=== PATIENT | male | born 1980 | race African-American/Black ===

== ENCOUNTER 2016-11-08 06:39 | Inpatient (IN) | payer BC ==
[~2016-11-08] VITALS: Ht 165.1 cm; Wt 108.9 kg
[2016-11-08] MEDS ORDERED: ONDANSETRON PF 4 MG/2 ML VIAL. IV ONE (07:00)
[2016-11-08] MEDS ORDERED: IV NORMAL SALINE 1000ML BAG 1,000 ML IV ONE (07:00)
--- NOTE | 2016-11-08 07:05 | PHYS DOC ---
Past Medical History Past Medical History: Anxiety, Hypertension, Other Additional Past Medical Histor: sleep apnea Past Surgical History: No Surgical History Alcohol Use: None Drug Use: None Adult General Chief Complaint Chief Complaint: DIZZY/LIGHT HEADED HPI HPI Patient is a 36 year old male who presents with vomiting & lightheadedness. The patient reports he woke this AM around 0530, felt lightheaded. He subsequently reports 13 episodes of vomiting. He denies fevers/chills, chest pain, shortness of breath, palpitations, hematemesis, abdominal pain, diarrhea, hematochezia/melena, dysuria/hematuria. Denies any recent exposures to ill contacts. History of HTN & VARINDER, denies use of EtOH. Doesn't have a PCP. Review of Systems Review of Systems Constitutional: Denies fever or chills Eyes: Denies change in visual acuity HENT: Denies nasal congestion or sore throat Respiratory: Denies cough or shortness of breath Cardiovascular: Denies chest pain or edema GI: Reports nausea & vomiting. Denies abdominal pain, bloody stools or diarrhea : Denies dysuria or hematuria Musculoskeletal: Denies back pain or joint pain Integument: Denies rash or skin lesions Neurologic: Denies headache, focal weakness or sensory changes Current Medications Current Medications Current Medications Medications (Trade) Dose Ordered Sig/Lorenzo Start Time Stop Time Status Last Admin Dose Admin Acetaminophen (Tylenol) 650 mg PRN Q4HRS PRN 11/08/16 11:15 11/09/16 11:14 Meclizine HCl (Antivert) 12.5 mg PRN Q6HRS PRN 11/08/16 11:15 Metoclopramide HCl (Reglan) 10 mg 1X ONCE 11/08/16 08:00 11/08/16 08:01 DC 11/08/16 08:03 10 MG Morphine Sulfate 2 mg PRN Q2HR PRN 11/08/16 11:15 11/09/16 11:14 Ondansetron HCl (Zofran) 4 mg PRN Q8HRS PRN 11/08/16 11:15 11/09/16 11:14 Potassium Chloride (KCl Oral Soln) 40 meq 1X ONCE 11/08/16 07:45 11/08/16 07:46 DC 11/08/16 07:54 40 MEQ Potassium Chloride (Klor-Con) 40 meq 1X ONCE 11/08/16 12:00 11/08/16 12:01 11/08/16 11:07 40 MEQ Sodium Chloride 1,000 ml @ 1,000 mls/hr 1X ONCE 11/08/16 07:00 11/08/16 07:59 DC 11/08/16 07:23 1,000 MLS/HR Allergies Allergies Allergies Coded Allergies Type Severity Reaction Last Updated Verified No Known Drug Allergies 07/08/15 No Physical Exam Physical Exam Constitutional: obese, no acute distress, non-toxic appearance. HENT: Normocephalic, atraumatic, bilateral external ears normal, TMs clear bilaterally no bulging or erythema, oropharynx moist, nose normal. Eyes: PERRLA, EOMI, conjunctiva normal, no discharge. Neck: supple, no stridor. Cardiovascular: RRR, no murmurs, no edema. Lungs & Thorax: LCTAB, no wheezing, no respiratory distress. Abdomen: soft, nontender, nondistended. Skin: Warm, dry, no erythema, no rash. Back: No tenderness. Extremities: No tenderness, no edema. Neurologic: Alert and oriented X 3, CN2-12 grossly intact, symmetric strength/ sensation to UE & LE, no focal deficits noted. Psychologic: Affect normal, judgement normal, mood normal. Current Patient Data Vital Signs Vital Signs Date Time Temp Pulse Resp B/P (MAP) Pulse Ox O2 Delivery O2 Flow Rate FiO2 11/08/16 09:00 80 18 96 Room Air 11/08/16 08:30 166/91 (116) 11/08/16 06:48 97.1 97.1 Lab Values Laboratory Tests Test 11/08/16 07:15 White Blood Count 7.5 x10^3/uL (4.0-11.0) Red Blood Count 5.16 x10^6/uL (4.30-5.70) Hemoglobin 14.5 g/dL (13.0-17.5) Hematocrit 45.3 % (39.0-53.0) Mean Corpuscular Volume 88 fL (79-100) Mean Corpuscular Hemoglobin 28 pg (25-35) Mean Corpuscular Hemoglobin Concent 32 g/dL (31-37) Red Cell Distribution Width 14.0 % (11.5-14.5) Platelet Count 226 x10^3/uL (140-400) Neutrophils (%) (Auto) 52 % (31-73) Lymphocytes (%) (Auto) 32 % (24-48) Monocytes (%) (Auto) 12 % (0-9) H Eosinophils (%) (Auto) 4 % (0-3) H Basophils (%) (Auto) 1 % (0-3) Neutrophils # (Auto) 3.9 x10^3uL (1.8-7.7) Lymphocytes # (Auto) 2.4 x10^3/uL (1.0-4.8) Monocytes # (Auto) 0.9 x10^3/uL (0.0-1.1) Eosinophils # (Auto) 0.3 x10^3/uL (0.0-0.7) Basophils # (Auto) 0.0 x10^3/uL (0.0-0.2) Platelet Estimate Adequate (ADEQUATE) Giant Platelets Present Sodium Level 142 mmol/L (136-145) Potassium Level 3.2 mmol/L (3.5-5.1) L Chloride Level 102 mmol/L (98-107) Carbon Dioxide Level 26 mmol/L (21-32) Anion Gap 14 (6-14) Blood Urea Nitrogen 11 mg/dL (8-26) Creatinine 1.1 mg/dL (0.7-1.3) Estimated GFR (Cockcroft-Gault) 91.1 BUN/Creatinine Ratio 10 (6-20) Glucose Level 140 mg/dL (70-99) H Calcium Level 9.0 mg/dL (8.5-10.1) Total Bilirubin 0.2 mg/dL (0.2-1.0) Aspartate Amino Transferase (AST) 30 U/L (15-37) Alanine Aminotransferase (ALT) 47 U/L (16-63) Alkaline Phosphatase 92 U/L (46-116) Troponin I Quantitative < 0.017 ng/mL (0.000-0.055) Total Protein 7.8 g/dL (6.4-8.2) Albumin 3.8 g/dL (3.4-5.0) Albumin/Globulin Ratio 1.0 (1.0-1.7) Lipase 88 U/L (73-393) Laboratory Tests 11/08/16 07:15 Laboratory Tests 11/08/16 07:15 EKG EKG interpreted by me: NSR rate 69, no ST elevation, T waves inverted in V5-V6, 1, 2, aVL without depression, normal intervals, no ectopy.[] Radiology/Procedures Radiology/Procedures PROCEDURE: CT HEAD WO CONTRAST Indication: Vertigo with nausea and vomiting. Axial imaging through the brain was performed without contrast. The ventricles and sulci are within normal limits. No sulcal effacement, midline shift or hemorrhage is detected. Cisterns are patent. The paranasal sinuses demonstrate mucous retention cysts or polyps within bilateral maxillary sinuses. Impression: No acute intracranial process is detected. PQRS Compliance Statement: One or more of the following individualized dose reduction techniques were utilized for this examination: 1. Automated exposure control 2. Adjustment of the mA and/or kV according to patient size 3. Use of iterative reconstruction technique DICTATED and SIGNED BY: RADHA RAMESH MD DATE: 11/08/16 0858[] Course & Med Decision Making Course & Med Decision Making Pertinent Labs and Imaging studies reviewed. (See chart for details) Patient presents with vomiting and lightheadedness. Gave IV fluids, Zofran. Labs show hypokalemia, he vomited immediately after receiving oral potassium. Subsequently complaining of vertigo more then near syncope, gave meclizine. Persistent vomiting and vertigo. Obtained CT of head which is negative for acute process. He continued to experience nausea, vomiting, and not able to stand up or ambulate. Recommended admission to the hospital for further valuation and treatment. The patient agrees with plan of care. Discussed with Dr. Lincoln who agrees to admit to inpatient status, neurology consult to Dr. Galeas. Patient admitted in stable condition. [] Dragon Disclaimer Dragon Disclaimer This electronic medical record was generated, in whole or in part, using a voice recognition dictation system. Departure Departure Impression: Primary Impression: Vertigo Additional Impressions: Hypokalemia Nausea & vomiting Disposition: ADMITTED INPATIENT Admitting Physician: Harman Lincoln Condition: STABLE Referrals: NO PCP (PCP) Problem Qualifiers ETHEL BERNARD MD November 08, 2016 07:05
[2016-11-08 07:36] LABS: BASO % 1 % (0-3); CREATININE 1.1 mg/dL (0.7-1.3); EOS % 4 % (0-3); GFR 91.1; HEMATOCRIT 45.3 % (39.0-53.0); HEMOGLOBIN 14.5 g/dL (13.0-17.5); LYMPH # 2.4 x10^3/uL (1.0-4.8); LYMPH % 32 % (24-48); MEAN CORPUSCULAR HEMOGLOBIN 28 pg (25-35); MEAN CORPUSCULAR HGB CONC 32 g/dL (31-37); MEAN CORPUSCULAR VOLUME 88 fL (79-100); MONO % 12 % (0-9); NEUT % 52 % (31-73); PLATELET COUNT 226 x10^3/uL (140-400); POTASSIUM 3.2 mmol/L (3.5-5.1); RED BLOOD COUNT 5.16 x10^6/uL (4.30-5.70); WHITE BLOOD COUNT 7.5 x10^3/uL (4.0-11.0)
--- NOTE | 2016-11-08 07:36 | EKG ---
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
[2016-11-08 07:41] LABS: ALBUMIN 3.8 g/dL (3.4-5.0); TOTAL BILIRUBIN 0.2 mg/dL (0.2-1.0); TOTAL PROTEIN 7.8 g/dL (6.4-8.2)
[2016-11-08] MEDS ORDERED: POTASSIUM CHLORIDE 20 MEQ/15 ML ORAL LIQUID. PO ONE (07:45)
[2016-11-08] MEDS ORDERED: METOCLOPRAMIDE HCL 10 MG/2 ML VIAL. IV ONE (08:00)
[2016-11-08] MEDS ORDERED: MECLIZINE HCL 12.5 MG TABLET. PO ONE (08:00)
[2016-11-08 10:42] LABS: PLT ESTIMATE ADEQUATE (ADEQUATE)
--- NOTE | 2016-11-08 10:53 | RAD ---
Indication: Vertigo with nausea and vomiting. Axial imaging through the brain was performed without contrast. The ventricles and sulci are within normal limits. No sulcal effacement, midline shift or hemorrhage is detected. Cisterns are patent. The paranasal sinuses demonstrate mucous retention cysts or polyps within bilateral maxillary sinuses. Impression: No acute intracranial process is detected. PQRS Compliance Statement: One or more of the following individualized dose reduction techniques were utilized for this examination: 1. Automated exposure control 2. Adjustment of the mA and/or kV according to patient size 3. Use of iterative reconstruction technique
[2016-11-08] MEDS ORDERED: MORPHINE SULFATE 2 MG/ML DISP.SYRIN. IV PRN (11:15)
[2016-11-08] MEDS ORDERED: MECLIZINE HCL 12.5 MG TABLET. PO PRN ×2 (11:15→14:30)
[2016-11-08] MEDS ORDERED: ACETAMINOPHEN 325 MG TABLET. PO PRN ×2 (11:15→13:30)
[2016-11-08 11:26] LABS: BILIRUBIN,URINE NEGATIVE (NEG); GLUCOSE,URINE NEGATIVE (NEG); NITRITE,URINE NEGATIVE (NEG); PH,URINE 6.5; PROTEIN,URINE NEGATIVE (NEG-TRACE); UROBILINOGEN,URINE 0.2 mg/dL (0.2 mg/dL)
[2016-11-08 11:44] LABS: RBC,URINE 0 /HPF (0-2); WBC,URINE 0 /HPF (0-4)
[2016-11-08 11:45] LABS: BACTERIA,URINE 0 /HPF (0-FEW)
[2016-11-08 12:00] VITALS: BP 156/96
[2016-11-08] MEDS ORDERED: POTASSIUM CHLORIDE 20 MEQ TABLET.ER. PO ONE (12:00)
[2016-11-08] MEDS ORDERED: hydrALAZINE 20 MG/ML VIAL. IVP PRN (13:30)
[2016-11-08] MEDS ORDERED: ALBUTEROL SULFATE 2.5 MG/3 ML NEBU. NEB PRN (13:30)
[2016-11-08] MEDS ORDERED: HYDROcodone/APAP 5/325MG 1 TAB TABLET PO PRN (13:30)
[2016-11-08] MEDS ORDERED: ONDANSETRON PF 4 MG/2 ML VIAL. IV PRN (13:30)
--- NOTE | 2016-11-08 14:18 | PDOC1 ---
History and Physical Current Problem List Problem List Problems Medical Problems: (1) Hypokalemia Status: Acute (2) Nausea & vomiting Status: Acute (3) Vertigo Status: Acute Current Medications Current Medications Current Medications Medications (Trade) Dose Ordered Sig/Lorenzo Start Time Stop Time Status Last Admin Dose Admin Acetaminophen (Tylenol) 325 mg PRN Q6HRS PRN 11/08/16 13:30 Acetaminophen/ Hydrocodone Bitart (Lortab 5/325) 1 tab PRN Q6HRS PRN 11/08/16 13:30 Albuterol Sulfate (Ventolin Neb Soln) 2.5 mg PRN Q4HRS PRN 11/08/16 13:30 Hydralazine HCl (Apresoline) 10 mg PRN Q4HRS PRN 11/08/16 13:30 Meclizine HCl (Antivert) 12.5 mg PRN Q6HRS PRN 11/08/16 11:15 Metoclopramide HCl (Reglan) 10 mg 1X ONCE 11/08/16 08:00 11/08/16 08:01 DC 11/08/16 08:03 10 MG Morphine Sulfate 2 mg PRN Q2HR PRN 11/08/16 11:15 11/09/16 11:14 Ondansetron HCl (Zofran) 4 mg PRN Q8HRS PRN 11/08/16 13:30 Potassium Chloride (KCl Oral Soln) 40 meq 1X ONCE 11/08/16 07:45 11/08/16 07:46 DC 11/08/16 07:54 40 MEQ Potassium Chloride (Klor-Con) 40 meq 1X ONCE 11/08/16 12:00 11/08/16 12:01 DC 11/08/16 11:07 40 MEQ Sodium Chloride 1,000 ml @ 1,000 mls/hr 1X ONCE 11/08/16 07:00 11/08/16 07:59 DC 11/08/16 07:23 1,000 MLS/HR Allergies Allergies Allergies Coded Allergies Type Severity Reaction Last Updated Verified No Known Drug Allergies 07/08/15 No ROS Review of System CONSTITUTIONAL: No fever or chills EYES: No recent changes SKIN: No rash or itching CARDIOVASCULAR: No chest pain, syncope, palpitations, or edema RESPIRATORY: No SOB or cough GASTROINTESTINAL: nausea, vomiting or no abdominal pain NEUROLOGICAL: dizziness, vertigo ENDOCRINE: No cold or heat intolerance GENITOURINARY: No urgency or frequency of urination MUSCULOSKELETAL: No back pain or joint pain LYMPHATICS: No enlarged lymph nodes PSYCHIATRIC: No anxiety or depression Physical Exam Physical Exam GEN.: No apparent distress. Alert and oriented. HEENT: Head is normocephalic, atraumatic NECK: Supple. no JVD LUNGS: Clear to auscultation. HEART: RRR, S1, S2 present. Peripheral pulses intact ABDOMEN: Soft, nontender. Positive bowel sounds. EXTREMITIES: Without any cyanosis. NEUROLOGIC: Normal speech, normal tone, Peripheral vertigo. PSYCHIATRIC: Normal affect, normal mood. SKIN: No ulcerations Vitals Vitals Vital Signs Date Time Temp Pulse Resp B/P (MAP) Pulse Ox O2 Delivery O2 Flow Rate FiO2 11/08/16 12:45 Room Air 11/08/16 12:00 97.8 82 22 156/96 (116) 94 97.8 Labs Labs Laboratory Tests Test 11/08/16 07:15 11/08/16 10:50 White Blood Count 7.5 x10^3/uL (4.0-11.0) Red Blood Count 5.16 x10^6/uL (4.30-5.70) Hemoglobin 14.5 g/dL (13.0-17.5) Hematocrit 45.3 % (39.0-53.0) Mean Corpuscular Volume 88 fL (79-100) Mean Corpuscular Hemoglobin 28 pg (25-35) Mean Corpuscular Hemoglobin Concent 32 g/dL (31-37) Red Cell Distribution Width 14.0 % (11.5-14.5) Platelet Count 226 x10^3/uL (140-400) Neutrophils (%) (Auto) 52 % (31-73) Lymphocytes (%) (Auto) 32 % (24-48) Monocytes (%) (Auto) 12 % (0-9) Eosinophils (%) (Auto) 4 % (0-3) Basophils (%) (Auto) 1 % (0-3) Neutrophils # (Auto) 3.9 x10^3uL (1.8-7.7) Lymphocytes # (Auto) 2.4 x10^3/uL (1.0-4.8) Monocytes # (Auto) 0.9 x10^3/uL (0.0-1.1) Eosinophils # (Auto) 0.3 x10^3/uL (0.0-0.7) Basophils # (Auto) 0.0 x10^3/uL (0.0-0.2) Platelet Estimate Adequate (ADEQUATE) Giant Platelets Present Sodium Level 142 mmol/L (136-145) Potassium Level 3.2 mmol/L (3.5-5.1) Chloride Level 102 mmol/L (98-107) Carbon Dioxide Level 26 mmol/L (21-32) Anion Gap 14 (6-14) Blood Urea Nitrogen 11 mg/dL (8-26) Creatinine 1.1 mg/dL (0.7-1.3) Estimated GFR (Cockcroft-Gault) 91.1 BUN/Creatinine Ratio 10 (6-20) Glucose Level 140 mg/dL (70-99) Calcium Level 9.0 mg/dL (8.5-10.1) Total Bilirubin 0.2 mg/dL (0.2-1.0) Aspartate Amino Transf (AST/SGOT) 30 U/L (15-37) Alanine Aminotransferase (ALT/SGPT) 47 U/L (16-63) Alkaline Phosphatase 92 U/L (46-116) Troponin I Quantitative < 0.017 ng/mL (0.000-0.055) Total Protein 7.8 g/dL (6.4-8.2) Albumin 3.8 g/dL (3.4-5.0) Albumin/Globulin Ratio 1.0 (1.0-1.7) Lipase 88 U/L (73-393) Urine Collection Type Unknown Urine Color Yellow Urine Clarity Clear Urine pH 6.5 Urine Specific [place] 1.020 Urine Protein Negative mg/dL (NEG-TRACE) Urine Glucose (UA) Negative mg/dL (NEG) Urine Ketones (Stick) Negative mg/dL (NEG) Urine Blood Negative (NEG) Urine Nitrite Negative (NEG) Urine Bilirubin Negative (NEG) Urine Urobilinogen Dipstick 0.2 mg/dL (0.2 mg/dL) Urine Leukocyte Esterase Negative (NEG) Urine RBC 0 /HPF (0-2) Urine WBC 0 /HPF (0-4) Urine Bacteria 0 /HPF (0-FEW) Urine Mucus Slight /LPF Laboratory Tests Test 11/08/16 07:15 11/08/16 10:50 White Blood Count 7.5 x10^3/uL (4.0-11.0) Red Blood Count 5.16 x10^6/uL (4.30-5.70) Hemoglobin 14.5 g/dL (13.0-17.5) Hematocrit 45.3 % (39.0-53.0) Mean Corpuscular Volume 88 fL (79-100) Mean Corpuscular Hemoglobin 28 pg (25-35) Mean Corpuscular Hemoglobin Concent 32 g/dL (31-37) Red Cell Distribution Width 14.0 % (11.5-14.5) Platelet Count 226 x10^3/uL (140-400) Neutrophils (%) (Auto) 52 % (31-73) Lymphocytes (%) (Auto) 32 % (24-48) Monocytes (%) (Auto) 12 % (0-9) Eosinophils (%) (Auto) 4 % (0-3) Basophils (%) (Auto) 1 % (0-3) Neutrophils # (Auto) 3.9 x10^3uL (1.8-7.7) Lymphocytes # (Auto) 2.4 x10^3/uL (1.0-4.8) Monocytes # (Auto) 0.9 x10^3/uL (0.0-1.1) Eosinophils # (Auto) 0.3 x10^3/uL (0.0-0.7) Basophils # (Auto) 0.0 x10^3/uL (0.0-0.2) Platelet Estimate Adequate (ADEQUATE) Giant Platelets Present Sodium Level 142 mmol/L (136-145) Potassium Level 3.2 mmol/L (3.5-5.1) Chloride Level 102 mmol/L (98-107) Carbon Dioxide Level 26 mmol/L (21-32) Anion Gap 14 (6-14) Blood Urea Nitrogen 11 mg/dL (8-26) Creatinine 1.1 mg/dL (0.7-1.3) Estimated GFR (Cockcroft-Gault) 91.1 BUN/Creatinine Ratio 10 (6-20) Glucose Level 140 mg/dL (70-99) Calcium Level 9.0 mg/dL (8.5-10.1) Total Bilirubin 0.2 mg/dL (0.2-1.0) Aspartate Amino Transf (AST/SGOT) 30 U/L (15-37) Alanine Aminotransferase (ALT/SGPT) 47 U/L (16-63) Alkaline Phosphatase 92 U/L (46-116) Troponin I Quantitative < 0.017 ng/mL (0.000-0.055) Total Protein 7.8 g/dL (6.4-8.2) Albumin 3.8 g/dL (3.4-5.0) Albumin/Globulin Ratio 1.0 (1.0-1.7) Lipase 88 U/L (73-393) Urine Collection Type Unknown Urine Color Yellow Urine Clarity Clear Urine pH 6.5 Urine Specific [place] 1.020 Urine Protein Negative mg/dL (NEG-TRACE) Urine Glucose (UA) Negative mg/dL (NEG) Urine Ketones (Stick) Negative mg/dL (NEG) Urine Blood Negative (NEG) Urine Nitrite Negative (NEG) Urine Bilirubin Negative (NEG) Urine Urobilinogen Dipstick 0.2 mg/dL (0.2 mg/dL) Urine Leukocyte Esterase Negative (NEG) Urine RBC 0 /HPF (0-2) Urine WBC 0 /HPF (0-4) Urine Bacteria 0 /HPF (0-FEW) Urine Mucus Slight /LPF VTE Prophylaxis Ordered VTE Prophylaxis Devices: No VTE Pharmacological Prophylaxi: No FAITH JUNIOR MD November 08, 2016 14:17
[2016-11-08] MEDS ORDERED: hydrALAZINE 20 MG/ML VIAL. IVP ONE (14:30)
[2016-11-08 15:00] VITALS: BP_SYST 166; BP_SYST 167; BP_SYST 169; BP_DIAS 106; BP_DIAS 110; BP_DIAS 112
[2016-11-08] MEDS ORDERED: GADOBUTROL 10 MMOL/10 ML VIAL IV ONE (15:00)
--- NOTE | 2016-11-08 15:36 | RAD ---
PROCEDURE MRI brain without and with contrast. HISTORY Nausea, vertigo with headache for 1 day, hypertension, ataxia TECHNIQUE Multiplanar, multi sequential pre and post contrast MR imaging was performed of the brain. COMPARISON None FINDINGS There is motion degradation. Ventricles, sulci, cisterns are within normal limits in size and configuration. There is no intra-axial mass effect, midline shift, extra-axial fluid collection, nodular parenchymal or leptomeningeal enhancement. There is a small 2 millimeter focus of signal change of the left parietal white matter, adjacent subtle FLAIR hyperintense signal abnormality without associated enhancement or mass effect. Otherwise no focal signal abnormality is identified of the brain parenchyma, no significant hemosiderin deposition. Left vertebral artery flow void is very small. Mastoid air cells are overall aerated. There are large likely mucous retention cysts of the maxillary sinuses bilaterally, on the right up to 3.6 cm AP and on the left up to 3.5 cm AP. There is negligible patchy ethmoid air cell mucosal thickening. Cerebellar tonsils are normal in location. There is nonspecific heterogeneity of the marrow of nonexpanded clivus. There is no significant abnormality of the pineal gland or pituitary gland. IMPRESSION 1. Tiny focus of signal change of the left parietal white matter may be due to prominent perivascular space, sequela likely very small old old lacunar infarct not excluded. Otherwise no significant intracranial abnormality is identified. Exam is degraded by motion. 2. There are large mucous retention cysts of the bilateral maxillary sinuses. Electronically signed by: Frank Rodriguez MD (November 08, 2016 15:35:51)
[2016-11-08] MEDS: amLODIPine BESYLATE 10 MG TABLET PO SCH (15:44)
[2016-11-08] MEDS: ONDANSETRON PF 4 MG/2 ML VIAL. IV PRN ×2 (15:46→23:37)
[2016-11-08] MEDS: IV NORMAL SALINE 1000ML BAG 1,000 ML IV SCH (15:56)
--- NOTE | 2016-11-08 16:20 | HP ---
ADMIT DATE: 11/08/2016 CHIEF COMPLAINT: Lightheadedness, dizziness. HISTORY OF PRESENT ILLNESS: A 36-year-old male patient with prior history of hypertension and sleep apnea, presented to the ER with complaints of sudden onset of dizziness for 1 day. Symptoms started early this morning after wake up. He is feeling lightheaded and dizzy and also had several episodes of nausea and vomiting. At the time of presentation, he was having hypokalemia and feeling still dizzy even with slight movement of his head. He says his symptoms look like room is spinning and nauseous every time he moves his head. He denies any other complaints such as fevers, chills, headaches, diarrhea, hematemesis, or hematochezia. He had a prior history of dizziness in the past and it was resolved by itself and never had a history of stroke or any cerebellar hemorrhages. His blood pressures were fairly controlled; however, he did not recall the numbers. PAST MEDICAL HISTORY: Anxiety, hypertension and sleep apnea. PAST SURGICAL HISTORY: None. PERSONAL HISTORY: No smoking, no alcohol, no drug abuse. FAMILY HISTORY: Positive for hypertension. REVIEW OF SYSTEMS AND PHYSICAL EXAMINATION: Please see my electronic H and P. LABORATORY DATA: CBC within normal limits. Chemistry: Potassium 3.2. Rest of the chemistry panel within normal limits. Urine within normal limits. IMAGING STUDIES: CT of the head negative for acute process. ASSESSMENT AND PLAN: 1. Vertigo and dizziness, unclear etiology. Needs to rule out central causes. We will order an MRI of the brain as CT head is ruled out any acute process. Blood pressure is not controlled; I will start him on amlodipine and p.r.n. hydralazine. 2. Symptomatic treatment of dizziness, such as meclizine and symptomatic treatment for nausea with IV zofran prn 3. Potassium has been replaced and we will continue IV hydration. 4. Clear liquid diet, advance as tolerated. 5. Fall precautions. 6. Neurology has been consulted and urine drug screen and MRI ordered. 7. Plan explained to patient and fiancee at the bedside, agree with the current plan. FAITH JUNIOR MD DR: JEFFRY/[place] JOB#: [id number] / [id number] [id number]
--- NOTE | 2016-11-08 16:27 | PDOC2 ---
NEUROLOGY CONSULT Date of Admission Date of Admission DATE: 11/08/16 TIME: 16:16 Reason for Consult Reason for Consult: IMPRESSION: Vertigo. Dizziness. Vomiting. BPPV likely. HTN VARINDER. DM? Bilateral maxillary sinuses Obesity. 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 No evidence of acute CVA or brain tumor at the present time. RECOMMENDATIONS/PLAN: Meclizine 25 mg tid. ASA 81 mg daily. lab: see orders. Treat medical disease. OT/PT HISTORY OF THE PRESENT ILLNESS: 36-y-old AA male patient with above medical diseases developed symptoms of dizziness, light headedness, vertigo, sense of room and self spinning, vomiting x 13 times, unable to move head due to vertigo, unable to stand nor walk since waking up in the morning or 11/08. He stated he never had anything like this before. He stated he was normal when he went to bed last night. PAST MEDICAL HISTORY: Please see above. PAST SURGERY HISTORY: No major surgery recently. ALLERGY: Unknown MEDICATIONS: Refer to [facility] HISTORY: Non contributory. SOCIAL HISTORY: Lives at home. Denies current smoking, drinking, and illicit drug use. REVIEW OF SYSTEMS: Constitutional: Over weight. Head: No recent traumatic brain or head injury. Skin: No edema, or rash. Ear: No infection, tinnitus. Eyes: No vision loss or color blindness. Nose: No bleeding or purulent discharges. Hearing: No hearing decrease. Neck: No injury. Cardiac: HTN. Pulmonary: No COPD. GI: No GI ulcer, GI bleeding. Urinary/genital: No dysuria, incontinence, urinary retention. Endocrinologic: Obesity. Skeletomuscular: No muscular atrophy, deformity. Neurological: see HP. Psychiatric: Denies drug use/abuse. Otherwise, not [id number] review of systems. PHYSICAL EXAMINATION: General appearance is in acute distress. HEENT: Normocephalic and nontraumatic. Eyes, nose, ears, and throat are unremarkable. Neck is supple. No lymphadenopathy. No crepitus. Cardiovascular: S1, S2, regular rate and rhythm. Pulmonary: Clear to auscultation bilaterally. Abdomen: Bowel sounds are positive. Abdomen is soft, nontender, and nondistended. Extremities: No rash, lesions, or edema. No restriction of range of motion NEUROLOGICAL EXAMINATION: Alert Oriented to time, place and person. Eyes closed. Mild horizontal nystagmus noted bilaterally. PERRL. EOMI. CN: no focal findings. Muscle tone: within normal. Muscle strength: 5 DTR: 2 Plantar reflex: Flexor response bilaterally Gait: not examined in bed. Sensory exam: no abnormal findings. No obvious cerebellar signs elicited. F-T-N test fine. Current Medications Current Medications Current Medications Sodium Chloride 1,000 ml @ 1,000 mls/hr 1X ONCE IV Last administered on 07:23; Start 11/08/16 at 07:00; Stop 11/08/16 at 07:59; Status DC Ondansetron HCl (Zofran) 4 mg 1X ONCE IV Last administered on 11/08/16 07:23; Start 11/08/16 at 07:00; Stop 11/08/16 at 07:01; Status DC Potassium Chloride (KCl Oral Soln) 40 meq 1X ONCE PO Last administered on 07:54; Start 11/08/16 at 07:45; Stop 11/08/16 at 07:46; Status DC Meclizine HCl (Antivert) 25 mg 1X ONCE PO Last administered on 11/08/16 08:03 ; Start 11/08/16 at 08:00; Stop 11/08/16 at 08:01; Status DC Metoclopramide HCl (Reglan) 10 mg 1X ONCE IV Last administered on 11/08/16 08: 03; Start 11/08/16 at 08:00; Stop 11/08/16 at 08:01; Status DC Ondansetron HCl (Zofran) 4 mg PRN Q8HRS PRN IV NAUSEA/VOMITING Last administered on 11/08/16 15:46; Start 11/08/16 at 11:15; Stop 11/09/16 at 11:14 Morphine Sulfate 2 mg PRN Q2HR PRN IV PAIN; Start 11/08/16 at 11:15; Stop at 11:14 Acetaminophen (Tylenol) 650 mg PRN Q4HRS PRN PO FEVER; Start 11/08/16 at 11:15; Stop 11/09/16 at 11:14 Meclizine HCl (Antivert) 12.5 mg PRN Q6HRS PRN PO DIZZINESS; Start 11/08/16 at 11:15; Stop 11/08/16 at 14:25; Status DC Potassium Chloride (Klor-Con) 40 meq 1X ONCE PO Last administered on 11/08/16 11:07; Start 11/08/16 at 12:00; Stop 11/08/16 at 12:01; Status DC Acetaminophen (Tylenol) 325 mg PRN Q6HRS PRN PO MILD PAIN / TEMP; Start at 13:30 Acetaminophen/ Hydrocodone Bitart (Lortab 5/325) 1 tab PRN Q6HRS PRN PO MODERATE TO SEVERE PAIN; Start 11/08/16 at 13:30 Hydralazine HCl (Apresoline) 10 mg PRN Q4HRS PRN IVP ELEVATED BP, SEE COMMENTS ; Start 11/08/16 at 13:30 Ondansetron HCl (Zofran) 4 mg PRN Q8HRS PRN IV NAUSEA/VOMITING; Start 11/08/16 at 13:30 Albuterol Sulfate (Ventolin Neb Soln) 2.5 mg PRN Q4HRS PRN NEB SHORTNESS OF BREATH; Start 11/08/16 at 13:30 Amlodipine Besylate (Norvasc) 10 mg DAILY PO Last administered on 11/08/16 15: 44; Start 11/08/16 at 15:00 Hydralazine HCl (Apresoline) 10 mg 1X ONCE IVP Last administered on 11/08/16 15:48; Start 11/08/16 at 14:30; Stop 11/08/16 at 14:31; Status DC Sodium Chloride 1,000 ml @ 75 mls/hr [id number] IV Last administered on 11/08/16 15:56; Start 11/08/16 at 14:30 Meclizine HCl (Antivert) 12.5 mg PRN Q6HRS PRN PO DIZZINESS Last administered on 11/08/16 15:44; Start 11/08/16 at 14:30; Stop 11/08/16 at 21:00 Gadobutrol (Gadavist) 10 mmol 1X ONCE IV Last administered on 11/08/16 15:10; Start 11/08/16 at 15:00; Stop 11/08/16 at 15:01; Status DC Aspirin (Children'S Aspirin) 81 mg [id number] PO ; Start 11/09/16 at 08:00; Status UNV Meclizine HCl (Antivert) 25 mg TID PO ; Start 11/08/16 at 21:00; Status UNV Allergies Allergies: Coded Allergies: No Known Drug Allergies (Unverified , 07/08/15) Vitals VITALS Vital Signs Date Time Temp Pulse Resp B/P (MAP) Pulse Ox O2 Delivery O2 Flow Rate FiO2 11/08/16 16:01 98 Room Air 11/08/16 15:48 96 166/106 11/08/16 15:00 98.1 22 98.1 Labs Labs Laboratory Tests Test 11/08/16 07:15 11/08/16 10:50 White Blood Count 7.5 x10^3/uL (4.0-11.0) Red Blood Count 5.16 x10^6/uL (4.30-5.70) Hemoglobin 14.5 g/dL (13.0-17.5) Hematocrit 45.3 % (39.0-53.0) Mean Corpuscular Volume 88 fL (79-100) Mean Corpuscular Hemoglobin 28 pg (25-35) Mean Corpuscular Hemoglobin Concent 32 g/dL (31-37) Red Cell Distribution Width 14.0 % (11.5-14.5) Platelet Count 226 x10^3/uL (140-400) Neutrophils (%) (Auto) 52 % (31-73) Lymphocytes (%) (Auto) 32 % (24-48) Monocytes (%) (Auto) 12 % (0-9) Eosinophils (%) (Auto) 4 % (0-3) Basophils (%) (Auto) 1 % (0-3) Neutrophils # (Auto) 3.9 x10^3uL (1.8-7.7) Lymphocytes # (Auto) 2.4 x10^3/uL (1.0-4.8) Monocytes # (Auto) 0.9 x10^3/uL (0.0-1.1) Eosinophils # (Auto) 0.3 x10^3/uL (0.0-0.7) Basophils # (Auto) 0.0 x10^3/uL (0.0-0.2) Platelet Estimate Adequate (ADEQUATE) Giant Platelets Present Sodium Level 142 mmol/L (136-145) Potassium Level 3.2 mmol/L (3.5-5.1) Chloride Level 102 mmol/L (98-107) Carbon Dioxide Level 26 mmol/L (21-32) Anion Gap 14 (6-14) Blood Urea Nitrogen 11 mg/dL (8-26) Creatinine 1.1 mg/dL (0.7-1.3) Estimated GFR (Cockcroft-Gault) 91.1 BUN/Creatinine Ratio 10 (6-20) Glucose Level 140 mg/dL (70-99) Calcium Level 9.0 mg/dL (8.5-10.1) Total Bilirubin 0.2 mg/dL (0.2-1.0) Aspartate Amino Transf (AST/SGOT) 30 U/L (15-37) Alanine Aminotransferase (ALT/SGPT) 47 U/L (16-63) Alkaline Phosphatase 92 U/L (46-116) Troponin I Quantitative < 0.017 ng/mL (0.000-0.055) Total Protein 7.8 g/dL (6.4-8.2) Albumin 3.8 g/dL (3.4-5.0) Albumin/Globulin Ratio 1.0 (1.0-1.7) Lipase 88 U/L (73-393) Urine Collection Type Unknown Urine Color Yellow Urine Clarity Clear Urine pH 6.5 Urine Specific Harrells 1.020 Urine Protein Negative mg/dL (NEG-TRACE) Urine Glucose (UA) Negative mg/dL (NEG) Urine Ketones (Stick) Negative mg/dL (NEG) Urine Blood Negative (NEG) Urine Nitrite Negative (NEG) Urine Bilirubin Negative (NEG) Urine Urobilinogen Dipstick 0.2 mg/dL (0.2 mg/dL) Urine Leukocyte Esterase Negative (NEG) Urine RBC 0 /HPF (0-2) Urine WBC 0 /HPF (0-4) Urine Bacteria 0 /HPF (0-FEW) Urine Mucus Slight /LPF Laboratory Tests Test 11/08/16 07:15 11/08/16 10:50 White Blood Count 7.5 x10^3/uL (4.0-11.0) Red Blood Count 5.16 x10^6/uL (4.30-5.70) Hemoglobin 14.5 g/dL (13.0-17.5) Hematocrit 45.3 % (39.0-53.0) Mean Corpuscular Volume 88 fL (79-100) Mean Corpuscular Hemoglobin 28 pg (25-35) Mean Corpuscular Hemoglobin Concent 32 g/dL (31-37) Red Cell Distribution Width 14.0 % (11.5-14.5) Platelet Count 226 x10^3/uL (140-400) Neutrophils (%) (Auto) 52 % (31-73) Lymphocytes (%) (Auto) 32 % (24-48) Monocytes (%) (Auto) 12 % (0-9) Eosinophils (%) (Auto) 4 % (0-3) Basophils (%) (Auto) 1 % (0-3) Neutrophils # (Auto) 3.9 x10^3uL (1.8-7.7) Lymphocytes # (Auto) 2.4 x10^3/uL (1.0-4.8) Monocytes # (Auto) 0.9 x10^3/uL (0.0-1.1) Eosinophils # (Auto) 0.3 x10^3/uL (0.0-0.7) Basophils # (Auto) 0.0 x10^3/uL (0.0-0.2) Platelet Estimate Adequate (ADEQUATE) Giant Platelets Present Sodium Level 142 mmol/L (136-145) Potassium Level 3.2 mmol/L (3.5-5.1) Chloride Level 102 mmol/L (98-107) Carbon Dioxide Level 26 mmol/L (21-32) Anion Gap 14 (6-14) Blood Urea Nitrogen 11 mg/dL (8-26) Creatinine 1.1 mg/dL (0.7-1.3) Estimated GFR (Cockcroft-Gault) 91.1 BUN/Creatinine Ratio 10 (6-20) Glucose Level 140 mg/dL (70-99) Calcium Level 9.0 mg/dL (8.5-10.1) Total Bilirubin 0.2 mg/dL (0.2-1.0) Aspartate Amino Transf (AST/SGOT) 30 U/L (15-37) Alanine Aminotransferase (ALT/SGPT) 47 U/L (16-63) Alkaline Phosphatase 92 U/L (46-116) Troponin I Quantitative < 0.017 ng/mL (0.000-0.055) Total Protein 7.8 g/dL (6.4-8.2) Albumin 3.8 g/dL (3.4-5.0) Albumin/Globulin Ratio 1.0 (1.0-1.7) Lipase 88 U/L (73-393) Urine Collection Type Unknown Urine Color Yellow Urine Clarity Clear Urine pH 6.5 Urine Specific Harrells 1.020 Urine Protein Negative mg/dL (NEG-TRACE) Urine Glucose (UA) Negative mg/dL (NEG) Urine Ketones (Stick) Negative mg/dL (NEG) Urine Blood Negative (NEG) Urine Nitrite Negative (NEG) Urine Bilirubin Negative (NEG) Urine Urobilinogen Dipstick 0.2 mg/dL (0.2 mg/dL) Urine Leukocyte Esterase Negative (NEG) Urine RBC 0 /HPF (0-2) Urine WBC 0 /HPF (0-4) Urine Bacteria 0 /HPF (0-FEW) Urine Mucus Slight /LPF STEPHON GARCIA MD November 08, 2016 16:27
[2016-11-08 18:07] LABS: BARBITURATES NEG (NEG); BENZODIAZEPINES NEG (NEG); CANNABINOIDS NEG (NEG); COCAINE POS (NEG); METHADONE NEG (NEG); OPIATES NEG (NEG); PHENCYCLIDINE NEG (NEG)
[2016-11-08 19:35] VITALS: BP 146/93
[2016-11-08] MEDS: MECLIZINE HCL 12.5 MG TABLET. PO SCH (20:41)
[2016-11-08 23:35] VITALS: BP 143/75
[2016-11-09] MEDS: IV NORMAL SALINE 1000ML BAG 1,000 ML IV SCH ×2 (03:22→17:10)
[2016-11-09 03:35] VITALS: BP 148/101
[2016-11-09 05:27] LABS: BASO % 0 % (0-3); EOS % 1 % (0-3); HEMOGLOBIN 14.5 g/dL (13.0-17.5); LYMPH # 1.7 x10^3/uL (1.0-4.8); LYMPH % 19 % (24-48); MEAN CORPUSCULAR HEMOGLOBIN 28 pg (25-35); MEAN CORPUSCULAR HGB CONC 33 g/dL (31-37); MEAN CORPUSCULAR VOLUME 86 fL (79-100); MONO % 7 % (0-9); NEUT % 73 % (31-73); PLATELET COUNT 258 x10^3/uL (140-400); RED BLOOD COUNT 5.11 x10^6/uL (4.30-5.70); RED CELL DISTRIBUTION WIDTH 14.3 % (11.5-14.5); WHITE BLOOD COUNT 8.9 x10^3/uL (4.0-11.0)
[2016-11-09 05:38] LABS: CALCIUM 9.2 mg/dL (8.5-10.1); CREATININE 1.1 mg/dL (0.7-1.3); GFR 91.1
--- NOTE | 2016-11-09 06:54 | ACF ---
Admission Forms Criteria VERTIGO Clinical Indications for Admission to Inpatient Care (Place 'X' for any and all applicable criteria): Admission is indicated for ANY ONE of the following(1)(2)(3)(4): [ ]I. Acute bacterial labyrinthitis [ ]II. A suspected etiology that requires admission for treatment [X]III. Inpatient admission required rather than observation care (Also use Vertigo: Observation Care as appropriate) because of ANY ONE of the following: [ ]a) Hemodynamic instability that is severe or persistent [ ]b) Signs or symptoms that are severe or persistent (eg, vomiting , orthostasis, inability to ambulate) [ ]c) Cardiac arrhythmias of immediate concern [ ]d) Severe (new) neurologic findings requiring inpatient care as indicated by ANY ONE of the following(6)(7) [ ]1) Cerebral bleeding, ischemia, or vasospasm(8)(9) [ ]2) Increased intracranial pressure or hydrocephalus(10) (11)(12) [ ]3) Papilledema [ ]4) Cerebral edema [ ]5) Mass effect on CT scan [X]e) Vomiting that is severe or persistent [ ]f) Continuous IV infusion of anticoagulation, platelet inhibitor, vasoactive, or antiarrhythmic medication [ ]g) Cerebral bleeding, hydrocephalus, or vasospasm monitoring(14) [ ]h) Increased intracranial pressure or cerebral edema monitoring [ ]i) Other condition, treatment or monitoring requiring inpatient admission [ ]IV. Cerebellar, brainstem, or cerebral ischemia or hemorrhage(5) Extended stay beyond goal length of stay may be needed for evaluating and treating a specific cause of dizziness, including(26): [ ]a) Head injury (27) ( Also use Traumatic Brain Injury, Nonsurgical Treatment guideline) [ ]b) New-onset vertebrobasilar vascular insufficiency(23) [ ]c) Acute Meniere disease with intractable symptoms [ ]d) Cardiac arrhythmias or conduction defects [ ]e) Acute neurologic event causing dizziness [ ]f) Myocardial ischemia [ ]g) Acute bacterial labyrinthitis(1) [ ]h) Severe acute vestibular neuronitis(18) The original [employer] content created by Madeleine [employer] has been revised. The portions of the content which have been revised are identified through the use of italic text or in bold, and Madeleine Mcl[employer] has neither reviewed nor approved the modified material. All other unmodified content is copyright [facility]. Please see references footnoted in the original [facility] edition 2016 Admission Criteria Met?: Yes CAITLIN KNOTT November 09, 2016 06:54
[2016-11-09 07:00] VITALS: BP 147/87
[2016-11-09] MEDS ORDERED: ASPIRIN CHEWABLE 81 MG TABLET. PO SCH (08:00)
[2016-11-09] MEDS: MECLIZINE HCL 12.5 MG TABLET. PO SCH ×3 (08:43→21:47)
[2016-11-09] MEDS: amLODIPine BESYLATE 10 MG TABLET PO SCH (08:44)
[2016-11-09 11:00] VITALS: BP 149/107
--- NOTE | 2016-11-09 11:30 | PDOC ---
PROGRESS NOTES Chief Complaint Chief Complaint Vertigo Drug use- cocaine Hypertension History of Present Illness History of Present Illness Mr. Roger was lying in bed when we saw him. He stated that he was still dizzy and that the Meclizine was not helping. He reports that he only uses powder cocaine every "couple of months". He denies tobacco use or other recreational drug use. Vitals Vitals Vital Signs Date Time Temp Pulse Resp B/P (MAP) Pulse Ox O2 Delivery O2 Flow Rate FiO2 11/09/16 08:44 85 147/87 11/09/16 08:00 Room Air 11/09/16 07:00 97.7 18 97 97.7 Physical Exam General: Alert, Cooperative Heart: Regular rate, Normal S1, Normal S2 Lungs: Clear Abdomen: Normal bowel sounds, Soft, No tenderness Extremities: No clubbing, No cyanosis, No edema Skin: No rashes, No breakdown Labs LABS Laboratory Tests Test 11/08/16 16:55 11/08/16 17:35 11/08/16 22:45 11/09/16 04:50 Troponin I Quantitative < 0.017 ng/mL (0.000-0.055) < 0.017 ng/mL (0.000-0.055) Urine Opiates Screen Neg (NEG) Urine Methadone Screen Neg (NEG) Urine Barbiturates Neg (NEG) Urine Phencyclidine Screen Neg (NEG) Urine Amphetamine/Methamphetamine Neg (NEG) Urine Benzodiazepines Screen Neg (NEG) Urine Cocaine Screen Pos (NEG) Urine Cannabinoids Screen Neg (NEG) Urine Ethyl Alcohol Neg (NEG) White Blood Count 8.9 x10^3/uL (4.0-11.0) Red Blood Count 5.11 x10^6/uL (4.30-5.70) Hemoglobin 14.5 g/dL (13.0-17.5) Hematocrit 44.0 % (39.0-53.0) Mean Corpuscular Volume 86 fL (79-100) Mean Corpuscular Hemoglobin 28 pg (25-35) Mean Corpuscular Hemoglobin Concent 33 g/dL (31-37) Red Cell Distribution Width 14.3 % (11.5-14.5) Platelet Count 258 x10^3/uL (140-400) Neutrophils (%) (Auto) 73 % (31-73) Lymphocytes (%) (Auto) 19 % (24-48) Monocytes (%) (Auto) 7 % (0-9) Eosinophils (%) (Auto) 1 % (0-3) Basophils (%) (Auto) 0 % (0-3) Neutrophils # (Auto) 6.5 x10^3uL (1.8-7.7) Lymphocytes # (Auto) 1.7 x10^3/uL (1.0-4.8) Monocytes # (Auto) 0.6 x10^3/uL (0.0-1.1) Eosinophils # (Auto) 0.1 x10^3/uL (0.0-0.7) Basophils # (Auto) 0.0 x10^3/uL (0.0-0.2) Sodium Level 137 mmol/L (136-145) Potassium Level 4.0 mmol/L (3.5-5.1) Chloride Level 100 mmol/L (98-107) Carbon Dioxide Level 26 mmol/L (21-32) Anion Gap 11 (6-14) Blood Urea Nitrogen 10 mg/dL (8-26) Creatinine 1.1 mg/dL (0.7-1.3) Estimated GFR (Cockcroft-Gault) 91.1 Glucose Level 126 mg/dL (70-99) Calcium Level 9.2 mg/dL (8.5-10.1) Review of Systems Review of Systems General: denies weakness HEENT: denies blurry vision, headache Neuro: complains of dizziness Cardio: denies chest pain Assessment and Plan Assessmemt and Plan Problems Medical Problems: (1) Hypokalemia Status: Acute (2) Nausea & vomiting Status: Acute (3) Vertigo Status: Acute Vertigo Drug use- cocaine Hypertension Plan: 1. Neuro following - on Meclizine, defer to them for medication changes 2. Continue Norvasc for hypertension 3. Trend potassium - 3.2 in ER and was replaced 4. Repeat labs in AM 5. PT/OT as appropriate 6. Subspecialist input appreciated Problems: Comment Review of Relevant I have reviewed the following items rosario (where applicable) has been applied. Labs Laboratory Tests Test 11/08/16 07:15 11/08/16 10:50 11/08/16 16:55 11/08/16 17:35 White Blood Count 7.5 x10^3/uL (4.0-11.0) Red Blood Count 5.16 x10^6/uL (4.30-5.70) Hemoglobin 14.5 g/dL (13.0-17.5) Hematocrit 45.3 % (39.0-53.0) Mean Corpuscular Volume 88 fL (79-100) Mean Corpuscular Hemoglobin 28 pg (25-35) Mean Corpuscular Hemoglobin Concent 32 g/dL (31-37) Red Cell Distribution Width 14.0 % (11.5-14.5) Platelet Count 226 x10^3/uL (140-400) Neutrophils (%) (Auto) 52 % (31-73) Lymphocytes (%) (Auto) 32 % (24-48) Monocytes (%) (Auto) 12 % (0-9) Eosinophils (%) (Auto) 4 % (0-3) Basophils (%) (Auto) 1 % (0-3) Neutrophils # (Auto) 3.9 x10^3uL (1.8-7.7) Lymphocytes # (Auto) 2.4 x10^3/uL (1.0-4.8) Monocytes # (Auto) 0.9 x10^3/uL (0.0-1.1) Eosinophils # (Auto) 0.3 x10^3/uL (0.0-0.7) Basophils # (Auto) 0.0 x10^3/uL (0.0-0.2) Platelet Estimate Adequate (ADEQUATE) Giant Platelets Present Sodium Level 142 mmol/L (136-145) Potassium Level 3.2 mmol/L (3.5-5.1) Chloride Level 102 mmol/L (98-107) Carbon Dioxide Level 26 mmol/L (21-32) Anion Gap 14 (6-14) Blood Urea Nitrogen 11 mg/dL (8-26) Creatinine 1.1 mg/dL (0.7-1.3) Estimated GFR (Cockcroft-Gault) 91.1 BUN/Creatinine Ratio 10 (6-20) Glucose Level 140 mg/dL (70-99) Calcium Level 9.0 mg/dL (8.5-10.1) Total Bilirubin 0.2 mg/dL (0.2-1.0) Aspartate Amino Transf (AST/SGOT) 30 U/L (15-37) Alanine Aminotransferase (ALT/SGPT) 47 U/L (16-63) Alkaline Phosphatase 92 U/L (46-116) Troponin I Quantitative < 0.017 ng/mL (0.000-0.055) < 0.017 ng/mL (0.000-0.055) Total Protein 7.8 g/dL (6.4-8.2) Albumin 3.8 g/dL (3.4-5.0) Albumin/Globulin Ratio 1.0 (1.0-1.7) Lipase 88 U/L (73-393) Urine Collection Type Unknown Urine Color Yellow Urine Clarity Clear Urine pH 6.5 Urine Specific Hannacroix 1.020 Urine Protein Negative mg/dL (NEG-TRACE) Urine Glucose (UA) Negative mg/dL (NEG) Urine Ketones (Stick) Negative mg/dL (NEG) Urine Blood Negative (NEG) Urine Nitrite Negative (NEG) Urine Bilirubin Negative (NEG) Urine Urobilinogen Dipstick 0.2 mg/dL (0.2 mg/dL) Urine Leukocyte Esterase Negative (NEG) Urine RBC 0 /HPF (0-2) Urine WBC 0 /HPF (0-4) Urine Bacteria 0 /HPF (0-FEW) Urine Mucus Slight /LPF Urine Opiates Screen Neg (NEG) Urine Methadone Screen Neg (NEG) Urine Barbiturates Neg (NEG) Urine Phencyclidine Screen Neg (NEG) Urine Amphetamine/Methamphetamine Neg (NEG) Urine Benzodiazepines Screen Neg (NEG) Urine Cocaine Screen Pos (NEG) Urine Cannabinoids Screen Neg (NEG) Urine Ethyl Alcohol Neg (NEG) Test 11/08/16 22:45 11/09/16 04:50 Troponin I Quantitative < 0.017 ng/mL (0.000-0.055) White Blood Count 8.9 x10^3/uL (4.0-11.0) Red Blood Count 5.11 x10^6/uL (4.30-5.70) Hemoglobin 14.5 g/dL (13.0-17.5) Hematocrit 44.0 % (39.0-53.0) Mean Corpuscular Volume 86 fL (79-100) Mean Corpuscular Hemoglobin 28 pg (25-35) Mean Corpuscular Hemoglobin Concent 33 g/dL (31-37) Red Cell Distribution Width 14.3 % (11.5-14.5) Platelet Count 258 x10^3/uL (140-400) Neutrophils (%) (Auto) 73 % (31-73) Lymphocytes (%) (Auto) 19 % (24-48) Monocytes (%) (Auto) 7 % (0-9) Eosinophils (%) (Auto) 1 % (0-3) Basophils (%) (Auto) 0 % (0-3) Neutrophils # (Auto) 6.5 x10^3uL (1.8-7.7) Lymphocytes # (Auto) 1.7 x10^3/uL (1.0-4.8) Monocytes # (Auto) 0.6 x10^3/uL (0.0-1.1) Eosinophils # (Auto) 0.1 x10^3/uL (0.0-0.7) Basophils # (Auto) 0.0 x10^3/uL (0.0-0.2) Sodium Level 137 mmol/L (136-145) Potassium Level 4.0 mmol/L (3.5-5.1) Chloride Level 100 mmol/L (98-107) Carbon Dioxide Level 26 mmol/L (21-32) Anion Gap 11 (6-14) Blood Urea Nitrogen 10 mg/dL (8-26) Creatinine 1.1 mg/dL (0.7-1.3) Estimated GFR (Cockcroft-Gault) 91.1 Glucose Level 126 mg/dL (70-99) Calcium Level 9.2 mg/dL (8.5-10.1) Laboratory Tests Test 11/08/16 16:55 11/08/16 17:35 11/08/16 22:45 11/09/16 04:50 Troponin I Quantitative < 0.017 ng/mL (0.000-0.055) < 0.017 ng/mL (0.000-0.055) Urine Opiates Screen Neg (NEG) Urine Methadone Screen Neg (NEG) Urine Barbiturates Neg (NEG) Urine Phencyclidine Screen Neg (NEG) Urine Amphetamine/Methamphetamine Neg (NEG) Urine Benzodiazepines Screen Neg (NEG) Urine Cocaine Screen Pos (NEG) Urine Cannabinoids Screen Neg (NEG) Urine Ethyl Alcohol Neg (NEG) White Blood Count 8.9 x10^3/uL (4.0-11.0) Red Blood Count 5.11 x10^6/uL (4.30-5.70) Hemoglobin 14.5 g/dL (13.0-17.5) Hematocrit 44.0 % (39.0-53.0) Mean Corpuscular Volume 86 fL (79-100) Mean Corpuscular Hemoglobin 28 pg (25-35) Mean Corpuscular Hemoglobin Concent 33 g/dL (31-37) Red Cell Distribution Width 14.3 % (11.5-14.5) Platelet Count 258 x10^3/uL (140-400) Neutrophils (%) (Auto) 73 % (31-73) Lymphocytes (%) (Auto) 19 % (24-48) Monocytes (%) (Auto) 7 % (0-9) Eosinophils (%) (Auto) 1 % (0-3) Basophils (%) (Auto) 0 % (0-3) Neutrophils # (Auto) 6.5 x10^3uL (1.8-7.7) Lymphocytes # (Auto) 1.7 x10^3/uL (1.0-4.8) Monocytes # (Auto) 0.6 x10^3/uL (0.0-1.1) Eosinophils # (Auto) 0.1 x10^3/uL (0.0-0.7) Basophils # (Auto) 0.0 x10^3/uL (0.0-0.2) Sodium Level 137 mmol/L (136-145) Potassium Level 4.0 mmol/L (3.5-5.1) Chloride Level 100 mmol/L (98-107) Carbon Dioxide Level 26 mmol/L (21-32) Anion Gap 11 (6-14) Blood Urea Nitrogen 10 mg/dL (8-26) Creatinine 1.1 mg/dL (0.7-1.3) Estimated GFR (Cockcroft-Gault) 91.1 Glucose Level 126 mg/dL (70-99) Calcium Level 9.2 mg/dL (8.5-10.1) Medications Current Medications Sodium Chloride 1,000 ml @ 1,000 mls/hr 1X ONCE IV Last administered on t 07:23; Start 11/08/16 at 07:00; Stop 11/08/16 at 07:59; Status DC Ondansetron HCl (Zofran) 4 mg 1X ONCE IV Last administered on 11/08/16 07:23; Start 11/08/16 at 07:00; Stop 11/08/16 at 07:01; Status DC Potassium Chloride (KCl Oral Soln) 40 meq 1X ONCE PO Last administered on 07:54; Start 11/08/16 at 07:45; Stop 11/08/16 at 07:46; Status DC Meclizine HCl (Antivert) 25 mg 1X ONCE PO Last administered on 11/08/16 08:03 ; Start 11/08/16 at 08:00; Stop 11/08/16 at 08:01; Status DC Metoclopramide HCl (Reglan) 10 mg 1X ONCE IV Last administered on 11/08/16 08: 03; Start 11/08/16 at 08:00; Stop 11/08/16 at 08:01; Status DC Ondansetron HCl (Zofran) 4 mg PRN Q8HRS PRN IV NAUSEA/VOMITING Last administered on 11/08/16 23:37; Start 11/08/16 at 11:15; Stop 11/09/16 at 11:14; Status DC Morphine Sulfate 2 mg PRN Q2HR PRN IV PAIN; Start 11/08/16 at 11:15; Stop at 11:14; Status DC Acetaminophen (Tylenol) 650 mg PRN Q4HRS PRN PO FEVER; Start 11/08/16 at 11:15; Stop 11/09/16 at 11:14; Status DC Meclizine HCl (Antivert) 12.5 mg PRN Q6HRS PRN PO DIZZINESS; Start 11/08/16 at 11:15; Stop 11/08/16 at 14:25; Status DC Potassium Chloride (Klor-Con) 40 meq 1X ONCE PO Last administered on 11/08/16 11:07; Start 11/08/16 at 12:00; Stop 11/08/16 at 12:01; Status DC Acetaminophen (Tylenol) 325 mg PRN Q6HRS PRN PO MILD PAIN / TEMP; Start at 13:30 Acetaminophen/ Hydrocodone Bitart (Lortab 5/325) 1 tab PRN Q6HRS PRN PO MODERATE TO SEVERE PAIN; Start 11/08/16 at 13:30 Hydralazine HCl (Apresoline) 10 mg PRN Q4HRS PRN IVP ELEVATED BP, SEE COMMENTS ; Start 11/08/16 at 13:30 Ondansetron HCl (Zofran) 4 mg PRN Q8HRS PRN IV NAUSEA/VOMITING; Start 11/08/16 at 13:30 Albuterol Sulfate (Ventolin Neb Soln) 2.5 mg PRN Q4HRS PRN NEB SHORTNESS OF BREATH; Start 11/08/16 at 13:30 Amlodipine Besylate (Norvasc) 10 mg DAILY PO Last administered on 11/09/16 08: 44; Start 11/08/16 at 15:00 Hydralazine HCl (Apresoline) 10 mg 1X ONCE IVP Last administered on 11/08/16 15:48; Start 11/08/16 at 14:30; Stop 11/08/16 at 14:31; Status DC Sodium Chloride 1,000 ml @ 75 mls/hr [id number] IV Last administered on 11/09/16 03:22; Start 11/08/16 at 14:30 Meclizine HCl (Antivert) 12.5 mg PRN Q6HRS PRN PO DIZZINESS Last administered on 11/08/16 15:44; Start 11/08/16 at 14:30; Stop 11/08/16 at 21:00; Status DC Gadobutrol (Gadavist) 10 mmol 1X ONCE IV Last administered on 11/08/16 15:10; Start 11/08/16 at 15:00; Stop 11/08/16 at 15:01; Status DC Aspirin (Children'S Aspirin) 81 mg DAILYWBKFT PO Last administered on 11/09/16 08:44; Start 11/09/16 at 08:00 Meclizine HCl (Antivert) 25 mg TID PO Last administered on 11/09/16 08:43; Start 11/08/16 at 21:00 Vitals/I & O Vital Sign - Last 24 Hours 11/08/16 11/08/16 11/08/16 11/08/16 11:30 12:00 12:00 12:45 Temp 97.8 97.8 97.8 97.8 Pulse 84 82 82 Resp 18 22 22 B/P (MAP) 157/87 (110) 156/96 (116) 156/96 (116) Pulse Ox 99 94 94 O2 Delivery Room Air Room Air Room Air Room Air 11/08/16 11/08/16 11/08/16 11/08/16 15:00 15:00 15:00 15:44 Temp 98.1 98.1 Pulse 82 90 98 96 Resp 22 B/P (MAP) 166/106 (126) 167/112 (130) 169/110 (129) 166/106 Pulse Ox 98 O2 Delivery Room Air 11/08/16 11/08/16 11/08/16 11/08/16 15:48 16:01 19:35 23:35 Temp 98.8 98.0 98.8 98.0 Pulse 96 101 106 Resp 18 18 B/P (MAP) 166/106 146/93 (110) 143/75 (97) Pulse Ox 98 96 93 O2 Delivery Room Air Room Air Room Air 11/09/16 11/09/16 11/09/16 11/09/16 03:35 07:00 08:00 08:44 Temp 97.9 97.7 97.9 97.7 Pulse 88 85 85 Resp 18 18 B/P (MAP) 148/101 (117) 147/87 (107) 147/87 Pulse Ox 95 97 O2 Delivery Room Air Room Air Room Air Intake and Output 11/08/16 11/08/16 11/09/16 15:00 23:00 07:00 Intake Total 1000 ml 177 ml 1160 ml Output Total 100 ml 1150 ml Balance 1000 ml 77 ml 10 ml DAVID SAUCEDO III DO November 09, 2016 11:30
--- NOTE | 2016-11-09 11:31 | RAD ---
Indication: A taxa, dizziness and vomiting. Grayscale, color-flow and duplex Doppler evaluation of both carotid systems was performed. Minimal plaquing is identified at the carotid bifurcations. No velocity elevation or stenosis is seen. Both vertebral arteries show antegrade flow. ICA to CCA ratio on the right is 0.67 left 0.53 Impression: Minimal bilateral carotid plaque. There is no evidence of a hemodynamically significant stenosis.
--- NOTE | 2016-11-09 13:27 | PDOC ---
PROGRESS NOTES Assessment Assessment Vertigo. Dizziness. Vomiting. To rule out top of the basilar syndrome. Cocaine intoxication. HTN Tachycardia events. VARINDER. DM? Bilateral maxillary sinuses Obesity. 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 No evidence of acute stroke or brain tumor on MRI at the present time. RECOMMENDATIONS/PLAN: Meclizine 25 mg tid. ASA 325 mg daily. Head and neck CTA. Fasting lipids in a.m. BP control, treat hypertension. Treat medical disease. OT/PT HISTORY OF THE PRESENT ILLNESS: 36-y-old AA male patient with above medical diseases developed symptoms of dizziness, light headedness, vertigo, sense of room and self spinning, vomiting x 13 times, unable to move head due to vertigo, unable to stand nor walk since waking up in the morning or 11/08. He stated he never had anything like this before. He stated he was normal when he went to bed last night. On further questioning on 11/09, he admitted that he had used Cocaine the previous night prior to his symptoms occurred. PAST MEDICAL HISTORY: Please see above. PAST SURGERY HISTORY: No major surgery recently. ALLERGY: Unknown MEDICATIONS: Refer to [facility] FAMILY HISTORY: Non contributory. SOCIAL HISTORY: Lives at home. Denies current smoking, drinking, and illicit drug use. REVIEW OF SYSTEMS: Constitutional: Over weight. Head: No recent traumatic brain or head injury. Skin: No edema, or rash. Ear: No infection, tinnitus. Eyes: No vision loss or color blindness. Nose: No bleeding or purulent discharges. Hearing: No hearing decrease. Neck: No injury. Cardiac: HTN. Pulmonary: No COPD. GI: No GI ulcer, GI bleeding. Urinary/genital: No dysuria, incontinence, urinary retention. Endocrinologic: Obesity. Skeletomuscular: No muscular atrophy, deformity. Neurological: see HP. Psychiatric: Denies drug use/abuse. Otherwise, not [id number] review of systems. PHYSICAL EXAMINATION: General appearance is in subacute distress. HEENT: Normocephalic and nontraumatic. Eyes, nose, ears, and throat are unremarkable. Neck is supple. No lymphadenopathy. No crepitus. Cardiovascular: S1, S2, regular rate and rhythm. Pulmonary: Clear to auscultation bilaterally. Abdomen: Bowel sounds are positive. Abdomen is soft, nontender, and nondistended. Extremities: No rash, lesions, or edema. No restriction of range of motion NEUROLOGICAL EXAMINATION: Alert Oriented to time, place and person. Able to sit and eat. Mild horizontal nystagmus noted bilaterally. Sclera congestion bilaterally. PERRL. EOMI. CN: no focal findings. Muscle tone: within normal. Muscle strength: 5 DTR: 2 Plantar reflex: Flexor response bilaterally Gait: not examined in bed. Sensory exam: no abnormal findings. No obvious cerebellar signs elicited. F-T-N test fine. Objective Objective Vital Signs Date Time Temp Pulse Resp B/P (MAP) Pulse Ox O2 Delivery O2 Flow Rate FiO2 11/09/16 11:00 98.1 88 18 149/107 (121) 97 Room Air 98.1 Intake and Output 11/09/16 07:00 Intake Total 2337 ml Output Total 1250 ml Balance 1087 ml Intake Oral 760 ml IV Total 1077 ml Other 500 ml Output Urine Total 1150 ml Stool Total 0 ml Emesis 100 ml # Voids 2 Vitals Signs Vitals VS - Last 72 Hours, by Label Date Time Temp Pulse Resp B/P (MAP) Pulse Ox O2 Delivery O2 Flow Rate FiO2 11/09/16 11:00 98.1 88 18 149/107 (121) 97 Room Air 98.1 11/09/16 08:44 85 147/87 11/09/16 08:00 Room Air 11/09/16 07:00 97.7 85 18 147/87 (107) 97 Room Air 97.7 11/09/16 03:35 97.9 88 18 148/101 (117) 95 Room Air 97.9 11/08/16 23:35 98.0 106 18 143/75 (97) 93 Room Air 98.0 11/08/16 19:35 98.8 101 18 146/93 (110) 96 Room Air 98.8 11/08/16 16:01 98 Room Air 11/08/16 15:48 96 166/106 11/08/16 15:44 96 166/106 11/08/16 15:00 98.1 98 22 169/110 (129) 98 Room Air 98.1 11/08/16 15:00 90 167/112 (130) 11/08/16 15:00 82 166/106 (126) 11/08/16 12:45 Room Air 11/08/16 12:00 97.8 82 22 156/96 (116) 94 Room Air 97.8 11/08/16 12:00 97.8 82 22 156/96 (116) 94 Room Air 97.8 11/08/16 11:30 84 18 157/87 (110) 99 Room Air 11/08/16 09:00 80 18 96 Room Air 11/08/16 08:30 84 18 166/91 (116) 96 Room Air Laboratory Laboratory Laboratory Tests Test 11/08/16 16:55 11/08/16 17:35 11/08/16 22:45 11/09/16 04:50 Troponin I Quantitative < 0.017 ng/mL (0.000-0.055) < 0.017 ng/mL (0.000-0.055) Urine Opiates Screen Neg (NEG) Urine Methadone Screen Neg (NEG) Urine Barbiturates Neg (NEG) Urine Phencyclidine Screen Neg (NEG) Urine Amphetamine/Methamphetamine Neg (NEG) Urine Benzodiazepines Screen Neg (NEG) Urine Cocaine Screen Pos (NEG) Urine Cannabinoids Screen Neg (NEG) Urine Ethyl Alcohol Neg (NEG) White Blood Count 8.9 x10^3/uL (4.0-11.0) Red Blood Count 5.11 x10^6/uL (4.30-5.70) Hemoglobin 14.5 g/dL (13.0-17.5) Hematocrit 44.0 % (39.0-53.0) Mean Corpuscular Volume 86 fL (79-100) Mean Corpuscular Hemoglobin 28 pg (25-35) Mean Corpuscular Hemoglobin Concent 33 g/dL (31-37) Red Cell Distribution Width 14.3 % (11.5-14.5) Platelet Count 258 x10^3/uL (140-400) Neutrophils (%) (Auto) 73 % (31-73) Lymphocytes (%) (Auto) 19 % (24-48) Monocytes (%) (Auto) 7 % (0-9) Eosinophils (%) (Auto) 1 % (0-3) Basophils (%) (Auto) 0 % (0-3) Neutrophils # (Auto) 6.5 x10^3uL (1.8-7.7) Lymphocytes # (Auto) 1.7 x10^3/uL (1.0-4.8) Monocytes # (Auto) 0.6 x10^3/uL (0.0-1.1) Eosinophils # (Auto) 0.1 x10^3/uL (0.0-0.7) Basophils # (Auto) 0.0 x10^3/uL (0.0-0.2) Sodium Level 137 mmol/L (136-145) Potassium Level 4.0 mmol/L (3.5-5.1) Chloride Level 100 mmol/L (98-107) Carbon Dioxide Level 26 mmol/L (21-32) Anion Gap 11 (6-14) Blood Urea Nitrogen 10 mg/dL (8-26) Creatinine 1.1 mg/dL (0.7-1.3) Estimated GFR (Cockcroft-Gault) 91.1 Glucose Level 126 mg/dL (70-99) Calcium Level 9.2 mg/dL (8.5-10.1) Medication Medications Current Medications Acetaminophen (Tylenol) 325 mg PRN Q6HRS PRN PO MILD PAIN / TEMP; Start at 13:30 Acetaminophen/ Hydrocodone Bitart (Lortab 5/325) 1 tab PRN Q6HRS PRN PO MODERATE TO SEVERE PAIN; Start 11/08/16 at 13:30 Albuterol Sulfate (Ventolin Neb Soln) 2.5 mg PRN Q4HRS PRN NEB SHORTNESS OF BREATH; Start 11/08/16 at 13:30 Amlodipine Besylate (Norvasc) 10 mg DAILY PO Last administered on 11/09/16 08: 44; Start 11/08/16 at 15:00 Aspirin (Akiko Aspirin) 325 mg DAILYWBKFT PO ; Start 11/10/16 at 08:00 Aspirin (Children'S Aspirin) 81 mg DAILYWBKFT PO Last administered on 11/09/16 08:44; Start 11/09/16 at 08:00; Stop 11/09/16 at 12:33; Status DC Gadobutrol (Gadavist) 10 mmol 1X ONCE IV Last administered on 11/08/16 15:10; Start 11/08/16 at 15:00; Stop 11/08/16 at 15:01; Status DC Hydralazine HCl (Apresoline) 10 mg 1X ONCE IVP Last administered on 11/08/16 15:48; Start 11/08/16 at 14:30; Stop 11/08/16 at 14:31; Status DC Hydralazine HCl (Apresoline) 10 mg PRN Q4HRS PRN IVP ELEVATED BP, SEE COMMENTS ; Start 11/08/16 at 13:30 Meclizine HCl (Antivert) 12.5 mg PRN Q6HRS PRN PO DIZZINESS Last administered on 11/08/16 15:44; Start 11/08/16 at 14:30; Stop 11/08/16 at 21:00; Status DC Meclizine HCl (Antivert) 25 mg TID PO Last administered on 11/09/16 08:43; Start 11/08/16 at 21:00 Ondansetron HCl (Zofran) 4 mg PRN Q8HRS PRN IV NAUSEA/VOMITING; Start 11/08/16 at 13:30 Sodium Chloride 1,000 ml @ 75 mls/hr [id number] IV Last administered on 11/09/16 03:22; Start 11/08/16 at 14:30 Comment Review of Relevant I have reviewed the following items rosario (where applicable) has been applied. STEPHON GARCIA MD November 09, 2016 13:27
[2016-11-09] MEDS ORDERED: IOHEXOL 350 MG/ML 100 ML VIAL. IV ONE (13:45)
[2016-11-09] MEDS ORDERED: SODIUM CHLORIDE 0.65% NASAL SPRAY 45ML BOTTLE. NS PRN (13:45)
[2016-11-09] MEDS ORDERED: CONTRAST GIVEN MC PRN (14:00)
--- NOTE | 2016-11-09 14:33 | RAD ---
Indication: Ataxia and dizziness. Axial imaging through the brain and neck was performed after the administration of intravenous contrast and utilizing the CT angiography protocol. Multiplanar, 3-D and MIP reformations were also performed. There appears be a normal three-vessel branching pattern to the aortic arch. The origins are patent. Both common carotid arteries are patent. The carotid bifurcations are unremarkable. Internal carotid arteries appear to be widely patent. Carotid siphons are unremarkable. There is normal perfusion to the anterior and middle cerebral arteries bilaterally. No filling defect is detected. Vertebral arteries appear to be codominant. The vertebrals are widely patent. Basilar artery is patent. Posterior cerebral arteries are unremarkable. Impression: Unremarkable CT angiogram of the head neck.
[2016-11-09 15:49] VITALS: BP 155/103
[2016-11-09] MEDS: LORazepam 1 MG TABLET PO PRN ×2 (17:06→22:56)
[2016-11-09 19:55] VITALS: BP 149/82
[2016-11-09 23:25] VITALS: BP 143/83
[2016-11-10 03:52] VITALS: BP 114/76
[2016-11-10] MEDS: IV NORMAL SALINE 1000ML BAG 1,000 ML IV SCH ×2 (03:59→20:45)
[2016-11-10 05:37] LABS: BASO % 1 % (0-3); EOS % 4 % (0-3); HEMATOCRIT 43.5 % (39.0-53.0); HEMOGLOBIN 14.3 g/dL (13.0-17.5); LYMPH # 2.6 x10^3/uL (1.0-4.8); LYMPH % 37 % (24-48); MEAN CORPUSCULAR HEMOGLOBIN 28 pg (25-35); MEAN CORPUSCULAR HGB CONC 33 g/dL (31-37); MEAN CORPUSCULAR VOLUME 87 fL (79-100); MONO % 13 % (0-9); NEUT % 46 % (31-73); PLATELET COUNT 236 x10^3/uL (140-400); RED BLOOD COUNT 5.02 x10^6/uL (4.30-5.70); RED CELL DISTRIBUTION WIDTH 13.9 % (11.5-14.5); WHITE BLOOD COUNT 6.9 x10^3/uL (4.0-11.0)
[2016-11-10 05:58] LABS: CALCIUM 8.6 mg/dL (8.5-10.1); CREATININE 1.1 mg/dL (0.7-1.3); GFR 91.1; POTASSIUM 3.9 mmol/L (3.5-5.1)
[2016-11-10 06:07] LABS: CHOLESTEROL/HDL RATIO 6.7
[2016-11-10 07:00] VITALS: BP 132/78
[2016-11-10] MEDS: amLODIPine BESYLATE 10 MG TABLET PO SCH (09:18)
[2016-11-10] MEDS: MECLIZINE HCL 12.5 MG TABLET. PO SCH ×4 (09:19→20:43)
[2016-11-10] MEDS: ASPIRIN 325 MG TABLET PO SCH (09:19)
--- NOTE | 2016-11-10 10:06 | PDOC ---
PROGRESS NOTES Chief Complaint Chief Complaint Vertigo Drug use- cocaine Hypertension History of Present Illness History of Present Illness Mr. Roger was lying in bed when we saw him. He stated that he was still dizzy and that the Meclizine was not helping still. We discussed care with his nurse. Vitals Vitals Vital Signs Date Time Temp Pulse Resp B/P (MAP) Pulse Ox O2 Delivery O2 Flow Rate FiO2 11/10/16 09:18 79 114/76 11/10/16 08:00 Room Air 11/10/16 07:00 97.7 20 94 97.7 Physical Exam General: Alert, Cooperative Heart: Regular rate, Normal S1, Normal S2 Lungs: Clear Abdomen: Normal bowel sounds, Soft, No tenderness Extremities: No clubbing, No cyanosis, No edema Skin: No rashes, No breakdown Labs LABS Laboratory Tests Test 11/10/16 03:40 White Blood Count 6.9 x10^3/uL (4.0-11.0) Red Blood Count 5.02 x10^6/uL (4.30-5.70) Hemoglobin 14.3 g/dL (13.0-17.5) Hematocrit 43.5 % (39.0-53.0) Mean Corpuscular Volume 87 fL (79-100) Mean Corpuscular Hemoglobin 28 pg (25-35) Mean Corpuscular Hemoglobin Concent 33 g/dL (31-37) Red Cell Distribution Width 13.9 % (11.5-14.5) Platelet Count 236 x10^3/uL (140-400) Neutrophils (%) (Auto) 46 % (31-73) Lymphocytes (%) (Auto) 37 % (24-48) Monocytes (%) (Auto) 13 % (0-9) Eosinophils (%) (Auto) 4 % (0-3) Basophils (%) (Auto) 1 % (0-3) Neutrophils # (Auto) 3.2 x10^3uL (1.8-7.7) Lymphocytes # (Auto) 2.6 x10^3/uL (1.0-4.8) Monocytes # (Auto) 0.9 x10^3/uL (0.0-1.1) Eosinophils # (Auto) 0.2 x10^3/uL (0.0-0.7) Basophils # (Auto) 0.0 x10^3/uL (0.0-0.2) Sodium Level 137 mmol/L (136-145) Potassium Level 3.9 mmol/L (3.5-5.1) Chloride Level 102 mmol/L (98-107) Carbon Dioxide Level 26 mmol/L (21-32) Anion Gap 9 (6-14) Blood Urea Nitrogen 11 mg/dL (8-26) Creatinine 1.1 mg/dL (0.7-1.3) Estimated GFR (Cockcroft-Gault) 91.1 Glucose Level 90 mg/dL (70-99) Calcium Level 8.6 mg/dL (8.5-10.1) Triglycerides Level 148 mg/dL (0-150) Cholesterol Level 220 mg/dL (0-200) LDL Cholesterol, Calculated 157 mg/dL (0-100) VLDL Cholesterol, Calculated 30 mg/dL (0-40) Non-HDL Cholesterol Calculated 187 mg/dL (0-129) HDL Cholesterol 33 mg/dL (40-60) Cholesterol/HDL Ratio 6.7 Review of Systems Review of Systems General: denies weakness GI: denies N/V Neuro: complains of dizziness Assessment and Plan Assessmemt and Plan Problems Medical Problems: (1) Hypokalemia Status: Acute (2) Nausea & vomiting Status: Acute (3) Vertigo Status: Acute Vertigo Drug use- cocaine Hypertension Plan: 1. Continue Meclizine 25 TID 2. Neuro following - carotid doppler and CTA head/neck negative 3. Suggest Transderm Scop patch if Neuro agrees 4. D/C today if neuro agrees 5. Counseled on cocaine use cessation 6. Subspecialist input appreciated Problems: Comment Review of Relevant I have reviewed the following items rosario (where applicable) has been applied. Labs Laboratory Tests Test 11/08/16 10:50 11/08/16 16:55 11/08/16 17:35 11/08/16 22:45 Urine Collection Type Unknown Urine Color Yellow Urine Clarity Clear Urine pH 6.5 Urine Specific Howard 1.020 Urine Protein Negative mg/dL (NEG-TRACE) Urine Glucose (UA) Negative mg/dL (NEG) Urine Ketones (Stick) Negative mg/dL (NEG) Urine Blood Negative (NEG) Urine Nitrite Negative (NEG) Urine Bilirubin Negative (NEG) Urine Urobilinogen Dipstick 0.2 mg/dL (0.2 mg/dL) Urine Leukocyte Esterase Negative (NEG) Urine RBC 0 /HPF (0-2) Urine WBC 0 /HPF (0-4) Urine Bacteria 0 /HPF (0-FEW) Urine Mucus Slight /LPF Troponin I Quantitative < 0.017 ng/mL (0.000-0.055) < 0.017 ng/mL (0.000-0.055) Urine Opiates Screen Neg (NEG) Urine Methadone Screen Neg (NEG) Urine Barbiturates Neg (NEG) Urine Phencyclidine Screen Neg (NEG) Urine Amphetamine/Methamphetamine Neg (NEG) Urine Benzodiazepines Screen Neg (NEG) Urine Cocaine Screen Pos (NEG) Urine Cannabinoids Screen Neg (NEG) Urine Ethyl Alcohol Neg (NEG) Test 11/09/16 04:50 11/10/16 03:40 White Blood Count 8.9 x10^3/uL (4.0-11.0) 6.9 x10^3/uL (4.0-11.0) Red Blood Count 5.11 x10^6/uL (4.30-5.70) 5.02 x10^6/uL (4.30-5.70) Hemoglobin 14.5 g/dL (13.0-17.5) 14.3 g/dL (13.0-17.5) Hematocrit 44.0 % (39.0-53.0) 43.5 % (39.0-53.0) Mean Corpuscular Volume 86 fL (79-100) 87 fL (79-100) Mean Corpuscular Hemoglobin 28 pg (25-35) 28 pg (25-35) Mean Corpuscular Hemoglobin Concent 33 g/dL (31-37) 33 g/dL (31-37) Red Cell Distribution Width 14.3 % (11.5-14.5) 13.9 % (11.5-14.5) Platelet Count 258 x10^3/uL (140-400) 236 x10^3/uL (140-400) Neutrophils (%) (Auto) 73 % (31-73) 46 % (31-73) Lymphocytes (%) (Auto) 19 % (24-48) 37 % (24-48) Monocytes (%) (Auto) 7 % (0-9) 13 % (0-9) Eosinophils (%) (Auto) 1 % (0-3) 4 % (0-3) Basophils (%) (Auto) 0 % (0-3) 1 % (0-3) Neutrophils # (Auto) 6.5 x10^3uL (1.8-7.7) 3.2 x10^3uL (1.8-7.7) Lymphocytes # (Auto) 1.7 x10^3/uL (1.0-4.8) 2.6 x10^3/uL (1.0-4.8) Monocytes # (Auto) 0.6 x10^3/uL (0.0-1.1) 0.9 x10^3/uL (0.0-1.1) Eosinophils # (Auto) 0.1 x10^3/uL (0.0-0.7) 0.2 x10^3/uL (0.0-0.7) Basophils # (Auto) 0.0 x10^3/uL (0.0-0.2) 0.0 x10^3/uL (0.0-0.2) Sodium Level 137 mmol/L (136-145) 137 mmol/L (136-145) Potassium Level 4.0 mmol/L (3.5-5.1) 3.9 mmol/L (3.5-5.1) Chloride Level 100 mmol/L (98-107) 102 mmol/L (98-107) Carbon Dioxide Level 26 mmol/L (21-32) 26 mmol/L (21-32) Anion Gap 11 (6-14) 9 (6-14) Blood Urea Nitrogen 10 mg/dL (8-26) 11 mg/dL (8-26) Creatinine 1.1 mg/dL (0.7-1.3) 1.1 mg/dL (0.7-1.3) Estimated GFR (Cockcroft-Gault) 91.1 91.1 Glucose Level 126 mg/dL (70-99) 90 mg/dL (70-99) Calcium Level 9.2 mg/dL (8.5-10.1) 8.6 mg/dL (8.5-10.1) Triglycerides Level 148 mg/dL (0-150) Cholesterol Level 220 mg/dL (0-200) LDL Cholesterol, Calculated 157 mg/dL (0-100) VLDL Cholesterol, Calculated 30 mg/dL (0-40) Non-HDL Cholesterol Calculated 187 mg/dL (0-129) HDL Cholesterol 33 mg/dL (40-60) Cholesterol/HDL Ratio 6.7 Laboratory Tests Test 11/10/16 03:40 White Blood Count 6.9 x10^3/uL (4.0-11.0) Red Blood Count 5.02 x10^6/uL (4.30-5.70) Hemoglobin 14.3 g/dL (13.0-17.5) Hematocrit 43.5 % (39.0-53.0) Mean Corpuscular Volume 87 fL (79-100) Mean Corpuscular Hemoglobin 28 pg (25-35) Mean Corpuscular Hemoglobin Concent 33 g/dL (31-37) Red Cell Distribution Width 13.9 % (11.5-14.5) Platelet Count 236 x10^3/uL (140-400) Neutrophils (%) (Auto) 46 % (31-73) Lymphocytes (%) (Auto) 37 % (24-48) Monocytes (%) (Auto) 13 % (0-9) Eosinophils (%) (Auto) 4 % (0-3) Basophils (%) (Auto) 1 % (0-3) Neutrophils # (Auto) 3.2 x10^3uL (1.8-7.7) Lymphocytes # (Auto) 2.6 x10^3/uL (1.0-4.8) Monocytes # (Auto) 0.9 x10^3/uL (0.0-1.1) Eosinophils # (Auto) 0.2 x10^3/uL (0.0-0.7) Basophils # (Auto) 0.0 x10^3/uL (0.0-0.2) Sodium Level 137 mmol/L (136-145) Potassium Level 3.9 mmol/L (3.5-5.1) Chloride Level 102 mmol/L (98-107) Carbon Dioxide Level 26 mmol/L (21-32) Anion Gap 9 (6-14) Blood Urea Nitrogen 11 mg/dL (8-26) Creatinine 1.1 mg/dL (0.7-1.3) Estimated GFR (Cockcroft-Gault) 91.1 Glucose Level 90 mg/dL (70-99) Calcium Level 8.6 mg/dL (8.5-10.1) Triglycerides Level 148 mg/dL (0-150) Cholesterol Level 220 mg/dL (0-200) LDL Cholesterol, Calculated 157 mg/dL (0-100) VLDL Cholesterol, Calculated 30 mg/dL (0-40) Non-HDL Cholesterol Calculated 187 mg/dL (0-129) HDL Cholesterol 33 mg/dL (40-60) Cholesterol/HDL Ratio 6.7 Medications Current Medications Sodium Chloride 1,000 ml @ 1,000 mls/hr 1X ONCE IV Last administered on 07:23; Start 11/08/16 at 07:00; Stop 11/08/16 at 07:59; Status DC Ondansetron HCl (Zofran) 4 mg 1X ONCE IV Last administered on 11/08/16 07:23; Start 11/08/16 at 07:00; Stop 11/08/16 at 07:01; Status DC Potassium Chloride (KCl Oral Soln) 40 meq 1X ONCE PO Last administered on 07:54; Start 11/08/16 at 07:45; Stop 11/08/16 at 07:46; Status DC Meclizine HCl (Antivert) 25 mg 1X ONCE PO Last administered on 11/08/16 08:03 ; Start 11/08/16 at 08:00; Stop 11/08/16 at 08:01; Status DC Metoclopramide HCl (Reglan) 10 mg 1X ONCE IV Last administered on 11/08/16 08: 03; Start 11/08/16 at 08:00; Stop 11/08/16 at 08:01; Status DC Ondansetron HCl (Zofran) 4 mg PRN Q8HRS PRN IV NAUSEA/VOMITING Last administered on 11/08/16 23:37; Start 11/08/16 at 11:15; Stop 11/09/16 at 11:14; Status DC Morphine Sulfate 2 mg PRN Q2HR PRN IV PAIN; Start 11/08/16 at 11:15; Stop at 11:14; Status DC Acetaminophen (Tylenol) 650 mg PRN Q4HRS PRN PO FEVER; Start 11/08/16 at 11:15; Stop 11/09/16 at 11:14; Status DC Meclizine HCl (Antivert) 12.5 mg PRN Q6HRS PRN PO DIZZINESS; Start 11/08/16 at 11:15; Stop 11/08/16 at 14:25; Status DC Potassium Chloride (Klor-Con) 40 meq 1X ONCE PO Last administered on 11/08/16 11:07; Start 11/08/16 at 12:00; Stop 11/08/16 at 12:01; Status DC Acetaminophen (Tylenol) 325 mg PRN Q6HRS PRN PO MILD PAIN / TEMP; Start at 13:30 Acetaminophen/ Hydrocodone Bitart (Lortab 5/325) 1 tab PRN Q6HRS PRN PO MODERATE TO SEVERE PAIN; Start 11/08/16 at 13:30 Hydralazine HCl (Apresoline) 10 mg PRN Q4HRS PRN IVP ELEVATED BP, SEE COMMENTS ; Start 11/08/16 at 13:30 Ondansetron HCl (Zofran) 4 mg PRN Q8HRS PRN IV NAUSEA/VOMITING; Start 11/08/16 at 13:30 Albuterol Sulfate (Ventolin Neb Soln) 2.5 mg PRN Q4HRS PRN NEB SHORTNESS OF BREATH; Start 11/08/16 at 13:30 Amlodipine Besylate (Norvasc) 10 mg DAILY PO Last administered on 11/10/16 09: 18; Start 11/08/16 at 15:00 Hydralazine HCl (Apresoline) 10 mg 1X ONCE IVP Last administered on 11/08/16 15:48; Start 11/08/16 at 14:30; Stop 11/08/16 at 14:31; Status DC Sodium Chloride 1,000 ml @ 75 mls/hr [id number] IV Last administered on 03:59; Start 11/08/16 at 14:30 Meclizine HCl (Antivert) 12.5 mg PRN Q6HRS PRN PO DIZZINESS Last administered on 11/08/16 15:44; Start 11/08/16 at 14:30; Stop 11/08/16 at 21:00; Status DC Gadobutrol (Gadavist) 10 mmol 1X ONCE IV Last administered on 11/08/16 15:10; Start 11/08/16 at 15:00; Stop 11/08/16 at 15:01; Status DC Aspirin (Children'S Aspirin) 81 mg DAILYWBKFT PO Last administered on 11/09/16 08:44; Start 11/09/16 at 08:00; Stop 11/09/16 at 12:33; Status DC Meclizine HCl (Antivert) 25 mg TID PO Last administered on 11/10/16 09:19; Start 11/08/16 at 21:00 Aspirin (Akiko Aspirin) 325 mg DAILYWBKFT PO Last administered on 11/10/16 09: 19; Start 11/10/16 at 08:00 Sodium Chloride (Saline Mist Nasal) 1 marilynn PRN Q1HR PRN NS NASAL CONGESTION; Start 11/09/16 at 13:45 Iohexol (Omnipaque 350 Mg/ml) 100 ml 1X ONCE IV ; Start 11/09/16 at 13:45; Stop 11/09/16 at 13:46; Status DC Info (Do NOT chart on this entry -- for MONITORING) 1 each PRN DAILY PRN MC SEE COMMENTS; Start 11/09/16 at 14:00; Stop 11/11/16 at 13:59 Lorazepam (Ativan) 1 mg PRN Q6HRS PRN PO ANXIETY / AGITATION Last administered on 11/09/16 22:56; Start 11/09/16 at 16:45 Vitals/I & O Vital Sign - Last 24 Hours 11/09/16 11/09/16 11/09/16 11/09/16 11:00 15:49 19:55 20:00 Temp 98.1 97.7 98.1 98.1 97.7 98.1 Pulse 88 88 99 Resp 18 18 18 B/P (MAP) 149/107 (121) 155/103 (120) 149/82 (104) Pulse Ox 97 98 95 O2 Delivery Room Air Room Air Room Air Room Air 11/09/16 11/10/16 11/10/16 11/10/16 23:25 03:52 07:00 08:00 Temp 98.1 97.9 97.7 98.1 97.9 97.7 Pulse 82 79 78 Resp 16 16 20 B/P (MAP) 143/83 (103) 114/76 (89) 132/78 (96) Pulse Ox 97 96 94 O2 Delivery Room Air Room Air Room Air Room Air 11/10/16 09:18 Pulse 79 B/P (MAP) 114/76 Intake and Output 11/09/16 11/09/16 11/10/16 15:00 23:00 07:00 Intake Total 1320 ml 1860 ml 480 ml Output Total 1750 ml 875 ml Balance 1320 ml 110 ml -395 ml DAVID SAUCEDO III DO November 10, 2016 10:06
[2016-11-10 10:30] VITALS: BP 151/100
[2016-11-10] MEDS: LORazepam 0.5 MG TABLET PO SCH ×2 (11:40→17:16)
[2016-11-10 14:56] VITALS: BP 116/70
--- NOTE | 2016-11-10 15:43 | PDOC ---
PROGRESS NOTES Assessment Assessment Vertigo. Dizziness. Cocaine intoxication. Tachycardia events. HTN HLD Bilateral maxillary sinuses Obesity. 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 No evidence of acute stroke or brain tumor on MRI at the present time. No evidence of the Top of the Basilar Syndrome this time. RECOMMENDATIONS/PLAN: Meclizine from 50 mg tid. Ativan 1 mg q6h. ASA 325 mg daily. Add Zocor 40 mg HS. BP control, treat hypertension. Treat medical disease. OT/PT Head and neck CTA on 11/09/16: Negative. No acute abnormality. Brain MRI w/wo contrast on 11/08: No acute CVA found. HISTORY OF THE PRESENT ILLNESS: 36-y-old AA male patient with above medical diseases developed symptoms of dizziness, light headedness, vertigo, sense of room and self spinning, vomiting x 13 times, unable to move head due to vertigo, unable to stand nor walk since waking up in the morning or 11/08. He stated he never had anything like this before. He stated he was normal when he went to bed last night. On further questioning on 11/09, he admitted that he had used Cocaine the previous night prior to his symptoms occurred. He said he used 40 (g) of Cocaine before going bed on 11/07 and has above symptoms next morning. PAST MEDICAL HISTORY: Please see above. PAST SURGERY HISTORY: No major surgery recently. ALLERGY: Unknown MEDICATIONS: Refer to [facility] FAMILY HISTORY: Non contributory. SOCIAL HISTORY: Lives at home. Denies current smoking, drinking, and illicit drug use. REVIEW OF SYSTEMS: Constitutional: Over weight. Head: No recent traumatic brain or head injury. Skin: No edema, or rash. Ear: No infection, tinnitus. Eyes: No vision loss or color blindness. Nose: No bleeding or purulent discharges. Hearing: No hearing decrease. Neck: No injury. Cardiac: HTN. Pulmonary: No COPD. GI: No GI ulcer, GI bleeding. Urinary/genital: No dysuria, incontinence, urinary retention. Endocrinologic: Obesity. Skeletomuscular: No muscular atrophy, deformity. Neurological: see HP. Psychiatric: Denies drug use/abuse. Otherwise, not [id number] review of systems. PHYSICAL EXAMINATION: General appearance is in subacute distress. HEENT: Normocephalic and nontraumatic. Eyes, nose, ears, and throat are unremarkable. Neck is supple. No lymphadenopathy. No crepitus. Cardiovascular: S1, S2, regular rate and rhythm. Pulmonary: Clear to auscultation bilaterally. Abdomen: Bowel sounds are positive. Abdomen is soft, nontender, and nondistended. Extremities: No rash, lesions, or edema. No restriction of range of motion NEUROLOGICAL EXAMINATION: Alert Able to sit and move his head from side to side. Oriented to time, place and person. Able to sit and eat. Mild horizontal nystagmus noted bilaterally. Sclera congestion bilaterally. PERRL. EOMI. CN: no focal findings. Muscle tone: within normal. Muscle strength: 5 DTR: 2 Plantar reflex: Flexor response bilaterally Gait: not examined in chair Sensory exam: no abnormal findings. No obvious cerebellar signs elicited. F-T-N test fine. Objective Objective Vital Signs Date Time Temp Pulse Resp B/P (MAP) Pulse Ox O2 Delivery O2 Flow Rate FiO2 11/10/16 14:56 98.0 79 20 116/70 (85) 95 Room Air 98.0 Intake and Output 11/10/16 07:00 Intake Total 3660 ml Output Total 2625 ml Balance 1035 ml Intake Oral 3660 ml Output Urine Total 2625 ml # Voids 2 Vitals Signs Vitals VS - Last 72 Hours, by Label Date Time Temp Pulse Resp B/P (MAP) Pulse Ox O2 Delivery O2 Flow Rate FiO2 11/10/16 14:56 98.0 79 20 116/70 (85) 95 Room Air 98.0 11/10/16 10:30 98.1 85 20 151/100 (117) 94 Room Air 98.1 11/10/16 09:18 79 114/76 11/10/16 08:00 Room Air 11/10/16 07:00 97.7 78 20 132/78 (96) 94 Room Air 97.7 11/10/16 03:52 97.9 79 16 114/76 (89) 96 Room Air 97.9 11/09/16 23:25 98.1 82 16 143/83 (103) 97 Room Air 98.1 11/09/16 20:00 Room Air 11/09/16 19:55 98.1 99 18 149/82 (104) 95 Room Air 98.1 11/09/16 15:49 97.7 88 18 155/103 (120) 98 Room Air 97.7 11/09/16 11:00 98.1 88 18 149/107 (121) 97 Room Air 98.1 11/09/16 08:44 85 147/87 11/09/16 08:00 Room Air 11/09/16 07:00 97.7 85 18 147/87 (107) 97 Room Air 97.7 Laboratory Laboratory Laboratory Tests Test 11/10/16 03:40 White Blood Count 6.9 x10^3/uL (4.0-11.0) Red Blood Count 5.02 x10^6/uL (4.30-5.70) Hemoglobin 14.3 g/dL (13.0-17.5) Hematocrit 43.5 % (39.0-53.0) Mean Corpuscular Volume 87 fL (79-100) Mean Corpuscular Hemoglobin 28 pg (25-35) Mean Corpuscular Hemoglobin Concent 33 g/dL (31-37) Red Cell Distribution Width 13.9 % (11.5-14.5) Platelet Count 236 x10^3/uL (140-400) Neutrophils (%) (Auto) 46 % (31-73) Lymphocytes (%) (Auto) 37 % (24-48) Monocytes (%) (Auto) 13 % (0-9) Eosinophils (%) (Auto) 4 % (0-3) Basophils (%) (Auto) 1 % (0-3) Neutrophils # (Auto) 3.2 x10^3uL (1.8-7.7) Lymphocytes # (Auto) 2.6 x10^3/uL (1.0-4.8) Monocytes # (Auto) 0.9 x10^3/uL (0.0-1.1) Eosinophils # (Auto) 0.2 x10^3/uL (0.0-0.7) Basophils # (Auto) 0.0 x10^3/uL (0.0-0.2) Sodium Level 137 mmol/L (136-145) Potassium Level 3.9 mmol/L (3.5-5.1) Chloride Level 102 mmol/L (98-107) Carbon Dioxide Level 26 mmol/L (21-32) Anion Gap 9 (6-14) Blood Urea Nitrogen 11 mg/dL (8-26) Creatinine 1.1 mg/dL (0.7-1.3) Estimated GFR (Cockcroft-Gault) 91.1 Glucose Level 90 mg/dL (70-99) Calcium Level 8.6 mg/dL (8.5-10.1) Triglycerides Level 148 mg/dL (0-150) Cholesterol Level 220 mg/dL (0-200) LDL Cholesterol, Calculated 157 mg/dL (0-100) VLDL Cholesterol, Calculated 30 mg/dL (0-40) Non-HDL Cholesterol Calculated 187 mg/dL (0-129) HDL Cholesterol 33 mg/dL (40-60) Cholesterol/HDL Ratio 6.7 Medication Medications Current Medications Aspirin (Akiko Aspirin) 325 mg DAILYWBKFT PO Last administered on 11/10/16 09: 19; Start 11/10/16 at 08:00 Lorazepam (Ativan) 1 mg PRN Q6HRS PRN PO ANXIETY / AGITATION Last administered on 11/09/16 22:56; Start 11/09/16 at 16:45; Stop 11/10/16 at 10:57; Status DC Lorazepam (Ativan) 1 mg Q6HRS PO Last administered on 11/10/16 11:40; Start at 11:00 Simvastatin (Zocor) 40 mg QHS PO ; Start 11/10/16 at 21:00 Comment Review of Relevant I have reviewed the following items rosario (where applicable) has been applied. STEPHON GARCIA MD November 10, 2016 15:43
[2016-11-10 19:51] VITALS: BP 148/91
[2016-11-10] MEDS ORDERED: SIMVASTATIN 40 MG TABLET. PO SCH (21:00)
[2016-11-10 23:47] VITALS: BP 159/99
[2016-11-11 03:24] VITALS: BP 153/69
[2016-11-11] MEDS: LORazepam 0.5 MG TABLET PO SCH ×3 (05:55→12:49)
[2016-11-11 07:00] VITALS: BP 142/85
[2016-11-11 07:30] LABS: BASO % 0 % (0-3); EOS % 5 % (0-3); HEMATOCRIT 45.6 % (39.0-53.0); LYMPH # 2.2 x10^3/uL (1.0-4.8); LYMPH % 36 % (24-48); MEAN CORPUSCULAR HEMOGLOBIN 29 pg (25-35); MEAN CORPUSCULAR HGB CONC 33 g/dL (31-37); MEAN CORPUSCULAR VOLUME 87 fL (79-100); MONO % 10 % (0-9); NEUT % 49 % (31-73); PLATELET COUNT 254 x10^3/uL (140-400); RED BLOOD COUNT 5.26 x10^6/uL (4.30-5.70); RED CELL DISTRIBUTION WIDTH 13.9 % (11.5-14.5)
[2016-11-11 07:44] LABS: GFR 101.7; POTASSIUM 3.9 mmol/L (3.5-5.1)
[2016-11-11] MEDS: amLODIPine BESYLATE 10 MG TABLET PO SCH (08:28)
[2016-11-11] MEDS: MECLIZINE HCL 12.5 MG TABLET. PO SCH ×2 (08:28→15:04)
[2016-11-11] MEDS: ASPIRIN 325 MG TABLET PO SCH (08:28)
[2016-11-11] MEDS: IV NORMAL SALINE 1000ML BAG 1,000 ML IV SCH (09:10)
[2016-11-11 11:00] VITALS: BP 144/75
--- NOTE | 2016-11-11 11:03 | PDOC ---
PROGRESS NOTES Chief Complaint Chief Complaint Vertigo Drug use- cocaine Hypertension Hyperlipidemia History of Present Illness History of Present Illness Mr. Roger was lying in bedin NAD. We discussed care with his nurse. No acute complaints. VS stable overnight. Vitals Vitals Vital Signs Date Time Temp Pulse Resp B/P (MAP) Pulse Ox O2 Delivery O2 Flow Rate FiO2 11/11/16 08:42 97 Room Air 11/11/16 08:28 82 153/69 11/11/16 07:00 97.7 18 97.7 Physical Exam General: Alert, Cooperative, No acute distress Heart: Regular rate, Normal S1, Normal S2 Lungs: Clear Abdomen: Normal bowel sounds, Soft, No tenderness Extremities: No clubbing, No cyanosis, No edema Skin: No rashes, No breakdown Labs LABS Laboratory Tests Test 11/11/16 06:50 White Blood Count 6.0 x10^3/uL (4.0-11.0) Red Blood Count 5.26 x10^6/uL (4.30-5.70) Hemoglobin 15.0 g/dL (13.0-17.5) Hematocrit 45.6 % (39.0-53.0) Mean Corpuscular Volume 87 fL (79-100) Mean Corpuscular Hemoglobin 29 pg (25-35) Mean Corpuscular Hemoglobin Concent 33 g/dL (31-37) Red Cell Distribution Width 13.9 % (11.5-14.5) Platelet Count 254 x10^3/uL (140-400) Neutrophils (%) (Auto) 49 % (31-73) Lymphocytes (%) (Auto) 36 % (24-48) Monocytes (%) (Auto) 10 % (0-9) Eosinophils (%) (Auto) 5 % (0-3) Basophils (%) (Auto) 0 % (0-3) Neutrophils # (Auto) 3.0 x10^3uL (1.8-7.7) Lymphocytes # (Auto) 2.2 x10^3/uL (1.0-4.8) Monocytes # (Auto) 0.6 x10^3/uL (0.0-1.1) Eosinophils # (Auto) 0.3 x10^3/uL (0.0-0.7) Basophils # (Auto) 0.0 x10^3/uL (0.0-0.2) Sodium Level 139 mmol/L (136-145) Potassium Level 3.9 mmol/L (3.5-5.1) Chloride Level 103 mmol/L (98-107) Carbon Dioxide Level 28 mmol/L (21-32) Anion Gap 8 (6-14) Blood Urea Nitrogen 9 mg/dL (8-26) Creatinine 1.0 mg/dL (0.7-1.3) Estimated GFR (Cockcroft-Gault) 101.7 Glucose Level 106 mg/dL (70-99) Calcium Level 9.0 mg/dL (8.5-10.1) Review of Systems Review of Systems General: denies weakness GI: denies N/V/D/C Assessment and Plan Assessmemt and Plan Problems Medical Problems: (1) Hypokalemia Status: Acute (2) Nausea & vomiting Status: Acute (3) Vertigo Status: Acute Vertigo Drug use- cocaine Hypertension Hyperlipidemia Plan: -Discharge if ok with Neuro -Meclizine increased to 50 TID per neuro -Ativan 1mg added per neuro -Zocor 40mg added for HLD -Continue Norvasc for HTN -Subspecialty input appreciated -Counseled on cocaine use cessation -Follow up with PCP Problems: Comment Review of Relevant I have reviewed the following items rosario (where applicable) has been applied. Labs Laboratory Tests Test 11/10/16 03:40 11/11/16 06:50 White Blood Count 6.9 x10^3/uL (4.0-11.0) 6.0 x10^3/uL (4.0-11.0) Red Blood Count 5.02 x10^6/uL (4.30-5.70) 5.26 x10^6/uL (4.30-5.70) Hemoglobin 14.3 g/dL (13.0-17.5) 15.0 g/dL (13.0-17.5) Hematocrit 43.5 % (39.0-53.0) 45.6 % (39.0-53.0) Mean Corpuscular Volume 87 fL (79-100) 87 fL (79-100) Mean Corpuscular Hemoglobin 28 pg (25-35) 29 pg (25-35) Mean Corpuscular Hemoglobin Concent 33 g/dL (31-37) 33 g/dL (31-37) Red Cell Distribution Width 13.9 % (11.5-14.5) 13.9 % (11.5-14.5) Platelet Count 236 x10^3/uL (140-400) 254 x10^3/uL (140-400) Neutrophils (%) (Auto) 46 % (31-73) 49 % (31-73) Lymphocytes (%) (Auto) 37 % (24-48) 36 % (24-48) Monocytes (%) (Auto) 13 % (0-9) 10 % (0-9) Eosinophils (%) (Auto) 4 % (0-3) 5 % (0-3) Basophils (%) (Auto) 1 % (0-3) 0 % (0-3) Neutrophils # (Auto) 3.2 x10^3uL (1.8-7.7) 3.0 x10^3uL (1.8-7.7) Lymphocytes # (Auto) 2.6 x10^3/uL (1.0-4.8) 2.2 x10^3/uL (1.0-4.8) Monocytes # (Auto) 0.9 x10^3/uL (0.0-1.1) 0.6 x10^3/uL (0.0-1.1) Eosinophils # (Auto) 0.2 x10^3/uL (0.0-0.7) 0.3 x10^3/uL (0.0-0.7) Basophils # (Auto) 0.0 x10^3/uL (0.0-0.2) 0.0 x10^3/uL (0.0-0.2) Sodium Level 137 mmol/L (136-145) 139 mmol/L (136-145) Potassium Level 3.9 mmol/L (3.5-5.1) 3.9 mmol/L (3.5-5.1) Chloride Level 102 mmol/L (98-107) 103 mmol/L (98-107) Carbon Dioxide Level 26 mmol/L (21-32) 28 mmol/L (21-32) Anion Gap 9 (6-14) 8 (6-14) Blood Urea Nitrogen 11 mg/dL (8-26) 9 mg/dL (8-26) Creatinine 1.1 mg/dL (0.7-1.3) 1.0 mg/dL (0.7-1.3) Estimated GFR (Cockcroft-Gault) 91.1 101.7 Glucose Level 90 mg/dL (70-99) 106 mg/dL (70-99) Calcium Level 8.6 mg/dL (8.5-10.1) 9.0 mg/dL (8.5-10.1) Triglycerides Level 148 mg/dL (0-150) Cholesterol Level 220 mg/dL (0-200) LDL Cholesterol, Calculated 157 mg/dL (0-100) VLDL Cholesterol, Calculated 30 mg/dL (0-40) Non-HDL Cholesterol Calculated 187 mg/dL (0-129) HDL Cholesterol 33 mg/dL (40-60) Cholesterol/HDL Ratio 6.7 Laboratory Tests Test 11/11/16 06:50 White Blood Count 6.0 x10^3/uL (4.0-11.0) Red Blood Count 5.26 x10^6/uL (4.30-5.70) Hemoglobin 15.0 g/dL (13.0-17.5) Hematocrit 45.6 % (39.0-53.0) Mean Corpuscular Volume 87 fL (79-100) Mean Corpuscular Hemoglobin 29 pg (25-35) Mean Corpuscular Hemoglobin Concent 33 g/dL (31-37) Red Cell Distribution Width 13.9 % (11.5-14.5) Platelet Count 254 x10^3/uL (140-400) Neutrophils (%) (Auto) 49 % (31-73) Lymphocytes (%) (Auto) 36 % (24-48) Monocytes (%) (Auto) 10 % (0-9) Eosinophils (%) (Auto) 5 % (0-3) Basophils (%) (Auto) 0 % (0-3) Neutrophils # (Auto) 3.0 x10^3uL (1.8-7.7) Lymphocytes # (Auto) 2.2 x10^3/uL (1.0-4.8) Monocytes # (Auto) 0.6 x10^3/uL (0.0-1.1) Eosinophils # (Auto) 0.3 x10^3/uL (0.0-0.7) Basophils # (Auto) 0.0 x10^3/uL (0.0-0.2) Sodium Level 139 mmol/L (136-145) Potassium Level 3.9 mmol/L (3.5-5.1) Chloride Level 103 mmol/L (98-107) Carbon Dioxide Level 28 mmol/L (21-32) Anion Gap 8 (6-14) Blood Urea Nitrogen 9 mg/dL (8-26) Creatinine 1.0 mg/dL (0.7-1.3) Estimated GFR (Cockcroft-Gault) 101.7 Glucose Level 106 mg/dL (70-99) Calcium Level 9.0 mg/dL (8.5-10.1) Medications Current Medications Sodium Chloride 1,000 ml @ 1,000 mls/hr 1X ONCE IV Last administered on 07:23; Start 11/08/16 at 07:00; Stop 11/08/16 at 07:59; Status DC Ondansetron HCl (Zofran) 4 mg 1X ONCE IV Last administered on 11/08/16 07:23; Start 11/08/16 at 07:00; Stop 11/08/16 at 07:01; Status DC Potassium Chloride (KCl Oral Soln) 40 meq 1X ONCE PO Last administered on 07:54; Start 11/08/16 at 07:45; Stop 11/08/16 at 07:46; Status DC Meclizine HCl (Antivert) 25 mg 1X ONCE PO Last administered on 11/08/16 08:03 ; Start 11/08/16 at 08:00; Stop 11/08/16 at 08:01; Status DC Metoclopramide HCl (Reglan) 10 mg 1X ONCE IV Last administered on 11/08/16 08: 03; Start 11/08/16 at 08:00; Stop 11/08/16 at 08:01; Status DC Ondansetron HCl (Zofran) 4 mg PRN Q8HRS PRN IV NAUSEA/VOMITING Last administered on 11/08/16 23:37; Start 11/08/16 at 11:15; Stop 11/09/16 at 11:14; Status DC Morphine Sulfate 2 mg PRN Q2HR PRN IV PAIN; Start 11/08/16 at 11:15; Stop at 11:14; Status DC Acetaminophen (Tylenol) 650 mg PRN Q4HRS PRN PO FEVER; Start 11/08/16 at 11:15; Stop 11/09/16 at 11:14; Status DC Meclizine HCl (Antivert) 12.5 mg PRN Q6HRS PRN PO DIZZINESS; Start 11/08/16 at 11:15; Stop 11/08/16 at 14:25; Status DC Potassium Chloride (Klor-Con) 40 meq 1X ONCE PO Last administered on 11/08/16 11:07; Start 11/08/16 at 12:00; Stop 11/08/16 at 12:01; Status DC Acetaminophen (Tylenol) 325 mg PRN Q6HRS PRN PO MILD PAIN / TEMP; Start at 13:30 Acetaminophen/ Hydrocodone Bitart (Lortab 5/325) 1 tab PRN Q6HRS PRN PO MODERATE TO SEVERE PAIN; Start 11/08/16 at 13:30 Hydralazine HCl (Apresoline) 10 mg PRN Q4HRS PRN IVP ELEVATED BP, SEE COMMENTS ; Start 11/08/16 at 13:30 Ondansetron HCl (Zofran) 4 mg PRN Q8HRS PRN IV NAUSEA/VOMITING; Start 11/08/16 at 13:30 Albuterol Sulfate (Ventolin Neb Soln) 2.5 mg PRN Q4HRS PRN NEB SHORTNESS OF BREATH Last administered on 11/10/16 21:14; Start 11/08/16 at 13:30 Amlodipine Besylate (Norvasc) 10 mg DAILY PO Last administered on 11/11/16 08: 28; Start 11/08/16 at 15:00 Hydralazine HCl (Apresoline) 10 mg 1X ONCE IVP Last administered on 11/08/16 15:48; Start 11/08/16 at 14:30; Stop 11/08/16 at 14:31; Status DC Sodium Chloride 1,000 ml @ 75 mls/hr [id number] IV Last administered on 20:45; Start 11/08/16 at 14:30 Meclizine HCl (Antivert) 12.5 mg PRN Q6HRS PRN PO DIZZINESS Last administered on 11/08/16 15:44; Start 11/08/16 at 14:30; Stop 11/08/16 at 21:00; Status DC Gadobutrol (Gadavist) 10 mmol 1X ONCE IV Last administered on 11/08/16 15:10; Start 11/08/16 at 15:00; Stop 11/08/16 at 15:01; Status DC Aspirin (Children'S Aspirin) 81 mg DAILYWBKFT PO Last administered on 11/09/16 08:44; Start 11/09/16 at 08:00; Stop 11/09/16 at 12:33; Status DC Meclizine HCl (Antivert) 25 mg TID PO Last administered on 11/10/16 09:19; Start 11/08/16 at 21:00; Stop 11/10/16 at 15:38; Status DC Aspirin (Akiko Aspirin) 325 mg DAILYWBKFT PO Last administered on 11/11/16 08: 28; Start 11/10/16 at 08:00 Sodium Chloride (Saline Mist Nasal) 1 marilynn PRN Q1HR PRN NS NASAL CONGESTION; Start 11/09/16 at 13:45 Iohexol (Omnipaque 350 Mg/ml) 100 ml 1X ONCE IV ; Start 11/09/16 at 13:45; Stop 11/09/16 at 13:46; Status DC Info (Do NOT chart on this entry -- for MONITORING) 1 each PRN DAILY PRN MC SEE COMMENTS; Start 11/09/16 at 14:00; Stop 11/11/16 at 13:59 Lorazepam (Ativan) 1 mg PRN Q6HRS PRN PO ANXIETY / AGITATION Last administered on 11/09/16 22:56; Start 11/09/16 at 16:45; Stop 11/10/16 at 10:57; Status DC Lorazepam (Ativan) 1 mg Q6HRS PO Last administered on 11/11/16 05:55; Start at 11:00 Simvastatin (Zocor) 40 mg QHS PO Last administered on 11/10/16 20:43; Start at 21:00 Meclizine HCl (Antivert) 50 mg TID PO Last administered on 11/11/16 08:28; Start 11/10/16 at 16:00 Active Scripts Active No Active Prescriptions or Reported Medications Vitals/I & O Vital Sign - Last 24 Hours 11/10/16 11/10/16 11/10/16 11/10/16 14:56 19:51 20:00 21:12 Temp 98.0 97.5 98.0 97.5 Pulse 79 89 Resp 20 16 B/P (MAP) 116/70 (85) 148/91 (110) Pulse Ox 95 95 98 O2 Delivery Room Air Room Air Room Air Room Air 11/10/16 11/11/16 11/11/16 11/11/16 23:47 03:24 07:00 08:28 Temp 98.6 97.7 97.7 98.6 97.7 97.7 Pulse 105 82 88 82 Resp 20 16 18 B/P (MAP) 159/99 (119) 153/69 (97) 142/85 (104) 153/69 Pulse Ox 98 93 97 O2 Delivery Room Air Room Air Room Air 11/11/16 08:42 Pulse Ox 97 O2 Delivery Room Air Intake and Output 11/10/16 11/10/16 11/11/16 15:00 23:00 07:00 Intake Total 1200 ml 1220 ml Output Total 2250 ml 800 ml Balance -1050 ml 420 ml DAVID SAUCEDO III DO November 11, 2016 11:03
--- NOTE | 2016-11-11 14:04 | PDOC ---
PROGRESS NOTES Assessment Assessment Vertigo. Dizziness. Cocaine intoxication. Tachycardia events. HTN HLD Bilateral maxillary sinuses Obesity. 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 No evidence of acute stroke or brain tumor at the present time. No evidence of the Top of the Basilar Syndrome this time. RECOMMENDATIONS/PLAN: Meclizine from 50 mg tid. Taper off after symptoms completely resolved. Ativan 1 mg q6h, taper off after symptoms resolved. Continue ASA 325 mg daily. Continue Zocor 40 mg HS. BP control, treat hypertension. Treat medical disease. Patient refused LP on 11/10/16. Patient eduction for illicit dur abstinence. OT/PT FU with PCP. FU with Neurology as needed. Head and neck CTA on 11/09/16: Negative. No acute abnormality. Brain MRI w/wo contrast on 11/08: No acute CVA found. HISTORY OF THE PRESENT ILLNESS: 36-y-old AA male patient with above medical diseases developed symptoms of dizziness, light headedness, vertigo, sense of room and self spinning, vomiting x 13 times, unable to move head due to vertigo, unable to stand nor walk since waking up in the morning or 11/08. He stated he never had anything like this before. He stated he was normal when he went to bed last night. On further questioning on 11/09, he admitted that he had used Cocaine the previous night prior to his symptoms occurred. He said he used 40 (g) of Cocaine before going bed on 11/07 and has above symptoms next morning. He stated on 11/11 that his symptoms much improved. PAST MEDICAL HISTORY: Please see above. PAST SURGERY HISTORY: No major surgery recently. ALLERGY: Unknown MEDICATIONS: Refer to [facility] FAMILY HISTORY: Non contributory. SOCIAL HISTORY: Lives at home. Denies current smoking, drinking, and illicit drug use. REVIEW OF SYSTEMS: Constitutional: Over weight. Head: No recent traumatic brain or head injury. Skin: No edema, or rash. Ear: No infection, tinnitus. Eyes: No vision loss or color blindness. Nose: No bleeding or purulent discharges. Hearing: No hearing decrease. Neck: No injury. Cardiac: HTN. Pulmonary: No COPD. GI: No GI ulcer, GI bleeding. Urinary/genital: No dysuria, incontinence, urinary retention. Endocrinologic: Obesity. Skeletomuscular: No muscular atrophy, deformity. Neurological: see HP. Psychiatric: Denies drug use/abuse. Otherwise, not [id number] review of systems. PHYSICAL EXAMINATION: General appearance is in mild subacute distress. HEENT: Normocephalic and nontraumatic. Eyes, nose, ears, and throat are unremarkable. Neck is supple. No lymphadenopathy. No crepitus. Cardiovascular: S1, S2, regular rate and rhythm. Pulmonary: Clear to auscultation bilaterally. Abdomen: Bowel sounds are positive. Abdomen is soft, nontender, and nondistended. Extremities: No rash, lesions, or edema. No restriction of range of motion NEUROLOGICAL EXAMINATION: Alert Able to sit and move his head from side to side. Oriented to time, place and person. Able to sit and eat. Mild horizontal nystagmus noted bilaterally. Sclera congestion bilaterally. PERRL. EOMI. CN: no focal findings. Muscle tone: within normal. Muscle strength: 5 DTR: 2 Plantar reflex: Flexor response bilaterally Gait: Normal. Sensory exam: no abnormal findings. No cerebellar signs elicited. F-T-N test fine. Tandem walk normal. Toe walking normal. Heel walking normal. Romberg test normal. Objective Objective Vital Signs Date Time Temp Pulse Resp B/P (MAP) Pulse Ox O2 Delivery O2 Flow Rate FiO2 11/11/16 11:00 97.5 88 18 144/75 (98) 97 Room Air 97.5 Intake and Output 11/11/16 07:00 Intake Total 2420 ml Output Total 3050 ml Balance -630 ml Intake Oral 2420 ml Output Urine Total 3050 ml Vitals Signs Vitals VS - Last 72 Hours, by Label Date Time Temp Pulse Resp B/P (MAP) Pulse Ox O2 Delivery O2 Flow Rate FiO2 11/11/16 11:00 97.5 88 18 144/75 (98) 97 Room Air 97.5 11/11/16 08:42 97 Room Air 11/11/16 08:28 82 153/69 11/11/16 07:53 Room Air 11/11/16 07:00 97.7 88 18 142/85 (104) 97 Room Air 97.7 11/11/16 03:24 97.7 82 16 153/69 (97) 93 Room Air 97.7 11/10/16 23:47 98.6 105 20 159/99 (119) 98 Room Air 98.6 11/10/16 21:12 98 Room Air 11/10/16 20:00 Room Air 11/10/16 19:51 97.5 89 16 148/91 (110) 95 Room Air 97.5 11/10/16 14:56 98.0 79 20 116/70 (85) 95 Room Air 98.0 11/10/16 10:30 98.1 85 20 151/100 (117) 94 Room Air 98.1 11/10/16 09:18 79 114/76 11/10/16 08:00 Room Air 11/10/16 07:00 97.7 78 20 132/78 (96) 94 Room Air 97.7 Laboratory Laboratory Laboratory Tests Test 11/11/16 06:50 White Blood Count 6.0 x10^3/uL (4.0-11.0) Red Blood Count 5.26 x10^6/uL (4.30-5.70) Hemoglobin 15.0 g/dL (13.0-17.5) Hematocrit 45.6 % (39.0-53.0) Mean Corpuscular Volume 87 fL (79-100) Mean Corpuscular Hemoglobin 29 pg (25-35) Mean Corpuscular Hemoglobin Concent 33 g/dL (31-37) Red Cell Distribution Width 13.9 % (11.5-14.5) Platelet Count 254 x10^3/uL (140-400) Neutrophils (%) (Auto) 49 % (31-73) Lymphocytes (%) (Auto) 36 % (24-48) Monocytes (%) (Auto) 10 % (0-9) Eosinophils (%) (Auto) 5 % (0-3) Basophils (%) (Auto) 0 % (0-3) Neutrophils # (Auto) 3.0 x10^3uL (1.8-7.7) Lymphocytes # (Auto) 2.2 x10^3/uL (1.0-4.8) Monocytes # (Auto) 0.6 x10^3/uL (0.0-1.1) Eosinophils # (Auto) 0.3 x10^3/uL (0.0-0.7) Basophils # (Auto) 0.0 x10^3/uL (0.0-0.2) Sodium Level 139 mmol/L (136-145) Potassium Level 3.9 mmol/L (3.5-5.1) Chloride Level 103 mmol/L (98-107) Carbon Dioxide Level 28 mmol/L (21-32) Anion Gap 8 (6-14) Blood Urea Nitrogen 9 mg/dL (8-26) Creatinine 1.0 mg/dL (0.7-1.3) Estimated GFR (Cockcroft-Gault) 101.7 Glucose Level 106 mg/dL (70-99) Calcium Level 9.0 mg/dL (8.5-10.1) Medication Medications Current Medications Meclizine HCl (Antivert) 50 mg TID PO Last administered on 11/11/16 08:28; Start 11/10/16 at 16:00 Simvastatin (Zocor) 40 mg QHS PO Last administered on 11/10/16 20:43; Start at 21:00 Comment Review of Relevant I have reviewed the following items rosario (where applicable) has been applied. STEPHON GARCIA MD November 11, 2016 14:04
== END 2016-11-11 15:40 | disposition home or self-care (01) | DRG 149 ==
LOC: ER 06:39 → 6 SOUTH 10:28
PROVIDERS: ADMIT Internal Medicine; ATTEND Internal Medicine
DX: R42 Dizziness and giddiness (principal); E87.6 Hypokalemia; F41.9 Anxiety disorder, unspecified; E66.9 Obesity, unspecified; G47.33 Obstructive sleep apnea (adult) (pediatric); I10 Essential (primary) hypertension; Z82.49 Family history of ischemic heart disease and other diseases of the circulatory system; Z86.73 Personal history of transient ischemic attack (TIA), and cerebral infarction without residual deficits; Z68.39 Body mass index [BMI] 39.0-39.9, adult; F14.129 Cocaine abuse with intoxication, unspecified; E78.5 Hyperlipidemia, unspecified; J32.0 Chronic maxillary sinusitis
CPT/HCPCS: 36415; 70450; 70496; 70498; 70553; 80048; 80053; 80061; 81001; 83690; 84484; 85007; 85027; 93005; 93880; 94250; 94640; 94760; 96361; 96374; 99406; A9585; G0481; J0360; J2405; J2765; J7030; J8597; 97116; 97535; 99285-25

== ENCOUNTER 2016-11-25 10:05 | Emergency (ER) | payer BC ==
[~2016-11-25] VITALS: Ht 165.1 cm; Wt 108.9 kg
[2016-11-25 10:50] LABS: POTASSIUM ISTAT 4.1 mmol/L (3.5-5.0)
[2016-11-25 11:06] LABS: BARBITURATES NEG (NEG); BENZODIAZEPINES NEG (NEG); BILIRUBIN,URINE NEGATIVE (NEG); CANNABINOIDS NEG (NEG); COCAINE POS (NEG); GLUCOSE,URINE NEGATIVE (NEG); METHADONE NEG (NEG); NITRITE,URINE NEGATIVE (NEG); OPIATES NEG (NEG); PH,URINE 7.5; PHENCYCLIDINE NEG (NEG); PROTEIN,URINE NEGATIVE (NEG-TRACE); UROBILINOGEN,URINE 0.2 mg/dL (0.2 mg/dL)
--- NOTE | 2016-11-25 11:12 | EKG ---
[facility] [address] [place] [address] Test Date: 2016-11-25 Test Time: 10:51:05 Pat Name: KECIA GROVER Department: Room: Gender: M Stereotype Caster: : [id number] Requested By: GREGG العراقي Order Number: [id number] Reading MD: Ilene Shetty Measurements Intervals [place] Rate: 95 P: 35 TX: 154 QRS: -7 QRSD: 86 T: 21 QT: 340 QTc: 430 Interpretive Statements SINUS RHYTHM LEFTWARD AXIS RI6.01 Unconfirmed report Compared to ECG 11/08/2016 07:10:21 Left-axis deviation now present Electronically Signed On 11-28-2016 15:11:14 CDT by Ilene Shetty
[2016-11-25 11:22] LABS: BACTERIA,URINE FEW /HPF (0-FEW); RBC,URINE RARE /HPF (0-2); SQUAMOUS EPITHELIAL CELL,UR OCC /LPF; WBC,URINE RARE /HPF (0-4)
--- NOTE | 2016-11-25 11:28 | ED.ADGEN ---
Past Medical History Past Medical History: Anxiety, Hypertension, Other Additional Past Medical Histor: sleep apnea Past Surgical History: No Surgical History Alcohol Use: None Drug Use: None Adult General Chief Complaint Chief Complaint: DIZZY/LIGHT HEADED HPI HPI Patient is a 36 year old man, history of obesity, sleep apnea, hypertension, who presents to the emergency department with a complaint of dizziness and hypertension. 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 He denies any syncope, any chest pain, any shortness of breath, any neck or jaw or arm pain, any abdominal pain, any nausea, vomiting, focal weakness, numbness or tingling. He states his blood pressure was checked at work, and it was noted to be in the 170s over 100. He states at that time he proceeded to the emergency department for additional evaluation. He states the dizziness and lightheadedness is fully resolved, denies any vertiginous type symptoms. Had done so before he left work. He states he was evaluated in the emergency department and admitted the hospital about a week ago for similar complaints, at that time is noted be hypertensive, he states that about one week ago he was placed on a second blood pressure medication in addition to his previous medication, which he had been taking as directed. He does not recall the name of this medication. He states he used cocaine a few days ago, states he "relapsed", but understands how detrimental illicit drugs can be, denies any use since that time, any other drugs, alcohol or cigarettes. Denies any injuries. Denies any headache, currently denies any complaints. At this time blood pressure is 171/90, heart rate is 90, oxygen saturation is 98% on room air. Respiratory rate is 18 and unlabored. Review of Systems Review of Systems Constitutional: Denies fever or chills. [] Eyes: Denies change in visual acuity. [] HENT: Denies nasal congestion or sore throat. [] Respiratory: Denies cough or shortness of breath. [] Cardiovascular: Denies chest pain or edema. [] GI: Denies abdominal pain, nausea, vomiting, bloody stools or diarrhea. [] : Denies dysuria. [] Musculoskeletal: Denies back pain or joint pain. [] Integument: Denies rash. [] Neurologic: Denies headache, focal weakness or sensory changes. [ Lightheadedness. Now resolved. Endocrine: Denies polyuria or polydipsia. [] Lymphatic: Denies swollen glands. [] Psychiatric: Denies depression or anxiety. [] Current Medications Current Medications Current Medications Medications (Trade) Dose Ordered Sig/Lorenzo Start Time Stop Time Status Last Admin Dose Admin Losartan Potassium (Cozaar) 50 mg 1X ONCE 11/25/16 12:30 11/25/16 12:31 DC 11/25/16 12:39 50 MG Allergies Allergies Allergies Coded Allergies Type Severity Reaction Last Updated Verified No Known Drug Allergies 07/08/15 No Physical Exam Physical Exam Constitutional: Well developed, well nourished, no acute distress, non-toxic appearance. [] HENT: Normocephalic, atraumatic, bilateral external ears normal, oropharynx moist, no oral exudates, nose normal. [] Eyes: PERRLA, EOMI, conjunctiva normal, no discharge. [] Neck: Normal range of motion, no tenderness, supple, no stridor. [] Cardiovascular:Heart rate regular rhythm, no murmur, S1, S2, no rubs or gallops. Lungs & Thorax: Bilateral breath sounds clear to auscultation, no wheezing, rhonchi, rales. No chest wall crepitus or tenderness. [] Abdomen: Bowel sounds normal, obese, soft, no tenderness, no rebound, no rigidity, no guarding, no masses, no pulsatile masses. [] Skin: Warm, dry, no erythema, no rash. [] Back: No tenderness, no CVA tenderness. [] Extremities: No tenderness, no cyanosis, no clubbing, ROM intact, no edema. Negative Homans sign. [] Neurologic: Alert and oriented X 3, normal motor function, normal sensory function, no focal deficits noted. [] Psychologic: Affect normal, judgement normal, mood normal. [] Current Patient Data Vital Signs Vital Signs Date Time Temp Pulse Resp B/P (MAP) Pulse Ox O2 Delivery O2 Flow Rate FiO2 11/25/16 12:41 82 21 152/80 (104) 93 Room Air 11/25/16 10:12 98.6 98.6 Lab Values Laboratory Tests Test 11/25/16 10:44 11/25/16 10:46 11/25/16 10:50 POC Troponin I 0.01 ng/ml (<0.08) POC Hemoglobin 16.3 g/dL (14-18) POC Hematocrit 48 % (37-52) POC Sodium 140 mmol/L (135-145) POC Potassium 4.1 mmol/L (3.5-5.0) POC Chloride 104 mmol/L (98-110) POC Total CO2 25 mmol/L (23-32) Anion Gap 16 mmol/L (6-14) H POC Blood Urea Nitrogen 9 mg/dL (8-26) POC Creatinine 1.0 mg/dL (0.5-1.4) Glucose Level 140 mg/dL (70-99) H POC Ionized Calcium (Agus) 1.15 mmol/L (1.13-1.32) Urine Collection Type Void Urine Color Yellow Urine Clarity Clear Urine pH 7.5 Urine Specific [place] 1.010 Urine Protein Negative mg/dL (NEG-TRACE) Urine Glucose (UA) Negative mg/dL (NEG) Urine Ketones (Stick) Negative mg/dL (NEG) Urine Blood Negative (NEG) Urine Nitrite Negative (NEG) Urine Bilirubin Negative (NEG) Urine Urobilinogen Dipstick 0.2 mg/dL (0.2 mg/dL) Urine Leukocyte Esterase Negative (NEG) Urine RBC Rare /HPF (0-2) Urine WBC Rare /HPF (0-4) Urine Squamous Epithelial Cells Occ /LPF Urine Bacteria Few /HPF (0-FEW) Urine Opiates Screen Neg (NEG) Urine Methadone Screen Neg (NEG) Urine Barbiturates Neg (NEG) Urine Phencyclidine Screen Neg (NEG) Urine Amphetamine/Methamphetamine Neg (NEG) Urine Benzodiazepines Screen Neg (NEG) Urine Cocaine Screen Pos (NEG) Urine Cannabinoids Screen Neg (NEG) Urine Ethyl Alcohol Neg (NEG) Laboratory Tests 11/25/16 10:46 EKG EKG EC: Sinus rhythm, heart rate 95 beats minute, left axis deviation, left ventricular hypertrophy noted, QTc of 430, TX of 154, QRS of 86, no ST elevations, depressions, abnormal ECG, does not meet STEMI criteria. As interpreted by me. Radiology/Procedures Radiology/Procedures [][facility] [address] [place], [place] [id number] IMAGING REPORT Signed PATIENT: KECIA GROVER ACCOUNT: [id number] : 1980 LOCATION: ER AGE: 36 SEX: M EXAM STATUS: REG ER ORD. PHYSICIAN: GREGG العراقي DO REASON: Dizziness/HTN PROCEDURE: CHEST PA & LATERAL Chest, 2 views, 11/25/2016: History: Dizziness, hypertension The heart size and pulmonary vascularity are normal. No pulmonary infiltrates are seen. There is no evidence of pleural fluid. IMPRESSION: No acute cardiopulmonary abnormality is detected. DICTATED and SIGNED BY: HEATHER GLEASON MD DATE: 11/25/16 1152 CC: GREGG العراقي DO; GIANLUCA OBRIEN DO ~ Course & Med Decision Making Course & Med Decision Making Pertinent Labs and Imaging studies reviewed. (See chart for details) Patient remains asymptomatic in the emergency department, repeat blood pressures are 170s over 100, and then 170s over 103, chest x-ray normal, laboratory studies are reveal negative troponin, normal creatinine, no protein noted in the urine.,ECG is unchanged from prior on 11/08/2016. Patient's urine was again noted positive for cocaine. I did address this with the patient, again , he is admitted to cocaine use, earlier in this week, as stated we had a lengthy discussion at bedside regarding the morbidity and mortality associated with cocaine abuse. Patient is taking losartan 50 mg once daily, which is added to his previous amlodipine 10 mg, he states he is taking both these medications as directed including this morning. I did speak with the patient's primary care provider, Dr. Obrien, who first saw the patient about a week and half ago after his recent admission, as there is no evidence of an acute event currently in the emergency department, and appears this is likely brought on by physical exertion, she recommends increasing his losartan to 50 mg twice daily, continue the amlodipine, and having the patient follow up with her in the office in 1-2 weeks. I did discuss this with the patient, who remains asymptomatic, and is agreeable this plan. He'll placed on light work duty with a work note provided him in the emergency department, until he is cleared by his primary care provider. He was given a prescription for losartan, he has amlodipine at home already, was also given clear and detailed return instructions, medication instructions and precautions, and again cautioned against the ill effects of illicit drug use. Patient ambulating without difficulty in the emergency department remains asymptomatic. Discharged home in stable condition with plan as above. Dragon Disclaimer Dragon Disclaimer This electronic medical record was generated, in whole or in part, using a voice recognition dictation system. Departure Impression: Primary Impression: Dizziness Disposition: 01 HOME, SELF-CARE Condition: IMPROVED Scripts Losartan Potassium (LOSARTAN POTASSIUM) 50 Mg Tablet 50 MG PO BID, #20 TAB Prov: GREGG العراقي DO 11/25/16 GREGG العراقي DO November 25, 2016 11:28
[2016-11-25] MEDS ORDERED: MECL25TA3 PO (11:29)
[2016-11-25] MEDS ORDERED: LOSA50TA6 PO ×2 (11:29→13:00)
[2016-11-25] MEDS ORDERED: FLUT9.9S NS (11:29)
[2016-11-25] MEDS ORDERED: LORA1TAB PO (11:29)
[2016-11-25] MEDS ORDERED: AMLO10TA2 PO (11:29)
[2016-11-25] MEDS ORDERED: SIMV40TA3 PO (11:29)
--- NOTE | 2016-11-25 11:58 | RAD ---
Chest, 2 views, 11/25/2016: History: Dizziness, hypertension The heart size and pulmonary vascularity are normal. No pulmonary infiltrates are seen. There is no evidence of pleural fluid. IMPRESSION: No acute cardiopulmonary abnormality is detected.
[2016-11-25] MEDS ORDERED: LOSARTAN POTASSIUM 50 MG TABLET. PO ONE (12:30)
[2016-11-25 12:41] VITALS: BP 152/80
== END 2016-11-25 13:08 | disposition home or self-care (01) ==
LOC: ER 10:05
DX: R42 Dizziness and giddiness (principal); I10 Essential (primary) hypertension; G47.30 Sleep apnea, unspecified; F41.9 Anxiety disorder, unspecified
CPT/HCPCS: 71020; 80047; 80305; 80320; 81001; 84484; 93005; G0480; G0481; 99285-25

== ENCOUNTER 2017-08-07 04:52 | Emergency (ER) | payer BC ==
[2017-08-07 06:10] LABS: ADD MAN DIFF? NO
[2017-08-07 06:17] LABS: BASO # 0.1 x10^3/uL (0.0-0.2); BASO % 1 % (0-3); EOS # 0.4 x10^3/uL (0.0-0.7); EOS % 5 % (0-3); HEMATOCRIT 40.6 % (39.0-53.0); HEMOGLOBIN 13.3 g/dL (13.0-17.5); LYMPH # 2.3 x10^3/uL (1.0-4.8); LYMPH % 27 % (24-48); MEAN CORPUSCULAR HEMOGLOBIN 29 pg (25-35); MEAN CORPUSCULAR HGB CONC 33 g/dL (31-37); MEAN CORPUSCULAR VOLUME 87 fL (79-100); MONO # 1.1 x10^3/uL (0.0-1.1); MONO % 13 % (0-9); NEUT # 4.7 x10^3uL (1.8-7.7); NEUT % 54 % (31-73); PLATELET COUNT 243 x10^3/uL (140-400); RED BLOOD COUNT 4.69 x10^6/uL (4.30-5.70); RED CELL DISTRIBUTION WIDTH 14.3 % (11.5-14.5); WHITE BLOOD COUNT 8.6 x10^3/uL (4.0-11.0)
[2017-08-07 06:36] LABS: D-DIMER < 0.27 ug/mlFEU (0.00-0.50)
[2017-08-07 06:38] LABS: ANION GAP 5 (6-14); BLOOD UREA NITROGEN 15 mg/dL (8-26); CALCIUM 8.4 mg/dL (8.5-10.1); CARBON DIOXIDE 30 mmol/L (21-32); CHLORIDE 100 mmol/L (98-107); CREATININE 1.2 mg/dL (0.7-1.3); GLUCOSE 105 mg/dL (70-99); POTASSIUM 3.9 mmol/L (3.5-5.1); SODIUM 135 mmol/L (136-145)
[2017-08-07 06:44] LABS: CREATINE KINASE 800 U/L (39-308)
[2017-08-07 08:29] LABS: PLT ESTIMATE ADEQUATE (ADEQUATE)
== END 2017-08-07 07:00 | disposition home or self-care (01) ==
LOC: ER 04:52
DX: M54.89 Other dorsalgia (principal); F41.9 Anxiety disorder, unspecified; I10 Essential (primary) hypertension; G47.30 Sleep apnea, unspecified; F14.10 Cocaine abuse, uncomplicated
CPT/HCPCS: 36415; 71046; 80048; 82550; 85025; 85379; 93005; 99285-25

== ENCOUNTER 2018-04-27 09:19 | Emergency (ER) | payer BC ==
[~2018-04-27] VITALS: Ht 166.4 cm; Wt 104.3 kg
[~2018-04-27 09:19] MED LIST: AMLO10TA6 PO; FLUT9.9S NS; LORA1TAB PO; LOSA50TA7 PO; MECL25TA3 PO; SIMV40TA3 PO
--- NOTE | 2018-04-27 10:27 | EKG ---
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
[2018-04-27] MEDS ORDERED: cloNIDine HCL 0.1 MG TABLET PO ONE (10:30)
[2018-04-27 10:36] LABS: BASO # 0.1 x10^3/uL (0.0-0.2); BASO % 1 % (0-3); EOS # 0.3 x10^3/uL (0.0-0.7); EOS % 6 % (0-3); HEMATOCRIT 44.5 % (39.0-53.0); HEMOGLOBIN 14.7 g/dL (13.0-17.5); LYMPH # 1.7 x10^3/uL (1.0-4.8); LYMPH % 37 % (24-48); MEAN CORPUSCULAR HEMOGLOBIN 29 pg (25-35); MEAN CORPUSCULAR HGB CONC 33 g/dL (31-37); MEAN CORPUSCULAR VOLUME 86 fL (79-100); MONO # 0.5 x10^3/uL (0.0-1.1); MONO % 10 % (0-9); NEUT # 2.1 x10^3uL (1.8-7.7); NEUT % 45 % (31-73); PLATELET COUNT 213 x10^3/uL (140-400); RED BLOOD COUNT 5.15 x10^6/uL (4.30-5.70); RED CELL DISTRIBUTION WIDTH 13.9 % (11.5-14.5); WHITE BLOOD COUNT 4.7 x10^3/uL (4.0-11.0)
[2018-04-27 10:44] LABS: CALCIUM 9.7 mg/dL (8.5-10.1); CREATININE 1.1 mg/dL (0.7-1.3); GFR 90.6
[2018-04-27 10:51] LABS: ALBUMIN 4.1 g/dL (3.4-5.0); TOTAL BILIRUBIN 0.5 mg/dL (0.2-1.0); TOTAL PROTEIN 8.3 g/dL (6.4-8.2)
--- NOTE | 2018-04-27 10:54 | RAD ---
Exam: AP portable chest History: Left-sided chest pain. Comparison: August 07, 2017. Findings: The heart and mediastinal structures are within normal limits for size. Lungs are without infiltrate. No pleural effusion or pneumothorax is identified. Impression: 1. No acute cardiopulmonary process. Electronically signed by: Rc Craft MD (04/27/2018 10:51 AM) [facility]
[2018-04-27 11:02] LABS: PLT ESTIMATE ADEQUATE (ADEQUATE)
[2018-04-27 11:04] LABS: BARBITURATES NEG (NEG); BENZODIAZEPINES NEG (NEG); CANNABINOIDS NEG (NEG); COCAINE NEG (NEG); METHADONE NEG (NEG); OPIATES NEG (NEG); PHENCYCLIDINE NEG (NEG)
[2018-04-27 11:07] LABS: AMPHETAMINE/METHAMPHETAMINE NEG (NEG)
[2018-04-27] MEDS ORDERED: KETOROLAC 15 MG/ML VIAL. IV ONE (11:30)
[2018-04-27] MEDS ORDERED: NAPR500T8 PO (11:41)
--- NOTE | 2018-04-27 11:41 | PHYS DOC ---
Past Medical History Past Medical History: Anxiety, Hypertension, Other Additional Past Medical Histor: sleep apnea Past Surgical History: No Surgical History Alcohol Use: Occasionally Drug Use: Cocaine Adult General Chief Complaint Chief Complaint: ABDOMINAL PAIN HPI HPI Patient is a 37 year old -[place] male patient with history of cocaine abuse who presents with intermittent left-sided chest wall pain which he describes as sharp, lancinating lasting seconds at a time and worse with deep breathing. Symptoms began this morning while at work. Denies fever, cough, shortness of breath, palpitations. Denies leg pain, swelling history of DVT or PE. Patient has had similar episodes of chest pain over the past to 3 years and has been evaluated by his primary care physician for the same. No other acute symptoms or complaints. [] Review of Systems Review of Systems Review symptoms as per history of present illness. All other review symptoms are negative. All other systems were reviewed and found to be within normal limits, except as documented in this note. Current Medications Current Medications Current Medications Medications (Trade) Dose Ordered Sig/Lorenzo Start Time Stop Time Status Last Admin Dose Admin Clonidine HCl (Catapres) 0.2 mg 1X ONCE 04/27/18 10:30 04/27/18 10:31 DC Ketorolac Tromethamine (Toradol 15mg Vial) 15 mg 1X ONCE 04/27/18 11:30 04/27/18 11:31 DC Allergies Allergies Allergies Coded Allergies Type Severity Reaction Last Updated Verified No Known Drug Allergies 04/27/18 No Physical Exam Physical Exam Constitutional: Well developed, well nourished, no acute distress, non-toxic appearance. [] HENT: Normocephalic, atraumatic, bilateral external ears normal, oropharynx moist, no oral exudates, nose normal. [] Eyes: PERRLA, EOMI, conjunctiva normal, no discharge. [] Neck: Normal range of motion, no tenderness, supple, no stridor. [] Cardiovascular:Heart rate regular rhythm, no murmur, negative Homans signs. [] Lungs & Thorax: Bilateral breath sounds clear to auscultation left midaxillary , chest wall tenderness reproducing pain complaint, no subcutaneous emphysema or bony crepitus. [] Abdomen: Bowel sounds normal, soft, no tenderness, no masses, no pulsatile masses. [] Skin: Warm, dry, no erythema, no rash. [] Back: No tenderness, no CVA tenderness. [] Extremities: No tenderness, no cyanosis, no clubbing, ROM intact, no edema. [] Neurologic: Alert and oriented X 3, normal motor function, normal sensory function, no focal deficits noted. [] Psychologic: Affect normal, judgement normal, mood normal. [] Current Patient Data Vital Signs Vital Signs Date Time Temp Pulse Resp B/P (MAP) Pulse Ox O2 Delivery O2 Flow Rate FiO2 04/27/18 09:23 97.5 71 18 173/105 (127) 97 Room Air 97.5 Lab Values Laboratory Tests Test 04/27/18 10:20 04/27/18 10:45 White Blood Count 4.7 x10^3/uL (4.0-11.0) Red Blood Count 5.15 x10^6/uL (4.30-5.70) Hemoglobin 14.7 g/dL (13.0-17.5) Hematocrit 44.5 % (39.0-53.0) Mean Corpuscular Volume 86 fL (79-100) Mean Corpuscular Hemoglobin 29 pg (25-35) Mean Corpuscular Hemoglobin Concent 33 g/dL (31-37) Red Cell Distribution Width 13.9 % (11.5-14.5) Platelet Count 213 x10^3/uL (140-400) Neutrophils (%) (Auto) 45 % (31-73) Lymphocytes (%) (Auto) 37 % (24-48) Monocytes (%) (Auto) 10 % (0-9) H Eosinophils (%) (Auto) 6 % (0-3) H Basophils (%) (Auto) 1 % (0-3) Neutrophils # (Auto) 2.1 x10^3uL (1.8-7.7) Lymphocytes # (Auto) 1.7 x10^3/uL (1.0-4.8) Monocytes # (Auto) 0.5 x10^3/uL (0.0-1.1) Eosinophils # (Auto) 0.3 x10^3/uL (0.0-0.7) Basophils # (Auto) 0.1 x10^3/uL (0.0-0.2) Platelet Estimate Adequate (ADEQUATE) Large Platelets Present D-Dimer (Tameka) < 0.27 ug/mlFEU Sodium Level 138 mmol/L (136-145) Potassium Level 4.0 mmol/L (3.5-5.1) Chloride Level 103 mmol/L (98-107) Carbon Dioxide Level 30 mmol/L (21-32) Anion Gap 5 (6-14) L Blood Urea Nitrogen 15 mg/dL (8-26) Creatinine 1.1 mg/dL (0.7-1.3) Estimated GFR (Cockcroft-Gault) 90.6 BUN/Creatinine Ratio 14 (6-20) Glucose Level 100 mg/dL (70-99) H Calcium Level 9.7 mg/dL (8.5-10.1) Total Bilirubin 0.5 mg/dL (0.2-1.0) Aspartate Amino Transferase (AST) 26 U/L (15-37) Alanine Aminotransferase (ALT) 45 U/L (16-63) Alkaline Phosphatase 92 U/L (46-116) Troponin I Quantitative < 0.017 ng/mL (0.000-0.055) Total Protein 8.3 g/dL (6.4-8.2) H Albumin 4.1 g/dL (3.4-5.0) Albumin/Globulin Ratio 1.0 (1.0-1.7) Lipase 124 U/L (73-393) Urine Opiates Screen Neg (NEG) Urine Methadone Screen Neg (NEG) Urine Barbiturates Neg (NEG) Urine Phencyclidine Screen Neg (NEG) Urine Amphetamine/Methamphetamine Neg (NEG) Urine Benzodiazepines Screen Neg (NEG) Urine Cocaine Screen Neg (NEG) Urine Cannabinoids Screen Neg (NEG) Urine Ethyl Alcohol Neg (NEG) Laboratory Tests 04/27/18 10:20 Laboratory Tests 04/27/18 10:20 EKG EKG [] Radiology/Procedures Radiology/Procedures [Chest x-ray: No acute cardiopulmonary disease per radiology report] Course & Med Decision Making Course & Med Decision Making Pertinent Labs and Imaging studies reviewed. (See chart for details) [Reproducible chest wall pain, worse with deep breathing and palpation. EKG,, Atrovent initial troponin negative. D-dimer negative. This is a recurrent problem which does not occur with exertion. Symptoms consistent most consistent with pleurisy. Will obtain 2 troponin, treating symptoms with recommendations of following up with PCP for further management. Return precautions reviewed.] Dragon Disclaimer Dragon Disclaimer This electronic medical record was generated, in whole or in part, using a voice recognition dictation system. Departure Departure Impression: Primary Impression: Chest wall pain Disposition: HOME, SELF-CARE Condition: STABLE Referrals: GIANLUCA ESCOBAR DO (PCP) Patient Instructions: Chest Pain (Nonspecific) Additional Instructions: Please take pain medications as instructed follow-up with your PCP to 3 days for further evaluation. Scripts Naproxen (NAPROXEN) 500 Mg Tablet.dr 1 TAB PO BID, #30 TAB 2 Refills Prov: CHRISTINE LEBLANC DO 04/27/18 CHRISTINE LEBLANC DO Apr 27, 2018 11:41
[2018-04-27 12:30] VITALS: BP 146/87
== END 2018-04-27 12:42 | disposition home or self-care (01) ==
LOC: ER 09:19
DX: R07.89 Other chest pain (principal); F14.20 Cocaine dependence, uncomplicated; F41.9 Anxiety disorder, unspecified; I10 Essential (primary) hypertension; G47.30 Sleep apnea, unspecified
CPT/HCPCS: 36415; 71045; 80053; 80307; 83690; 84484; 85025; 85379; 93005; 99285-25; G0479

== ENCOUNTER 2018-07-25 12:53 | Emergency (ER) | payer BC ==
[~2018-07-25] VITALS: Ht 165.1 cm; Wt 104.3 kg
[~2018-07-25 12:53] MED LIST changes: +LOSA-73 PO; -LOSA50TA7 PO; +NAPR500T8 PO
[2018-07-25 13:08] VITALS: BP 169/107
--- NOTE | 2018-07-25 13:29 | PHYS DOC ---
Past Medical History Past Medical History: Anxiety, High Cholesterol, Hypertension, Other Additional Past Medical Histor: sleep apnea Past Surgical History: No Surgical History Smoking: Cigarettes, Less than 1pk/day Alcohol Use: Occasionally Drug Use: Cocaine Adult General Chief Complaint Chief Complaint: ABDOMINAL PAIN HPI HPI Patient is a 37 year old male who presents with complaining of upper abdominal pain. Patient complaining of burning pain in upper abdomen for the last 5 days without relation to eating or activity and rated his pain 7/10. Patient denies radiation of pain. Patient complaining of nausea without vomiting. Patient states he has had about 3 hard bowel movement every day complaining of mild constipation. Patient denies fever and chills, chest pain, shortness of breath, history of the same pain, urinary symptom. Patient states he to bear aspirin for his headache and his pain without improvement of pain. Review of Systems Review of Systems Constitutional: Denies fever or chills [] Eyes: Denies change in visual acuity, redness, or eye pain [] HENT: Denies nasal congestion or sore throat [] Respiratory: Denies cough or shortness of breath [] Cardiovascular: No additional information not addressed in HPI [] GI: Reports abdominal pain, nausea, constipation, denies vomiting, bloody stools or diarrhea [] : Denies dysuria or hematuria [] Musculoskeletal: Denies back pain or joint pain [] Integument: Denies rash or skin lesions [] Neurologic: Denies headache, focal weakness or sensory changes [] Endocrine: Denies polyuria or polydipsia [] All other systems were reviewed and found to be within normal limits, except as documented in this note. Current Medications Current Medications Current Medications Medications (Trade) Dose Ordered Sig/[facility] Start Time Stop Time Status Last Admin Dose Admin Multi-Ingredient Mouthwash/Gargle (Gi Cocktail) 20 ml 1X ONCE 07/25/18 13:30 07/25/18 13:31 DC 07/25/18 13:30 20 ML Allergies Allergies Allergies Coded Allergies Type Severity Reaction Last Updated Verified No Known Drug Allergies 04/27/18 No Physical Exam Physical Exam Constitutional: Well developed, well nourished, mild distress, non-toxic appearance. [] HENT: Normocephalic, atraumatic, oropharynx moist, no oral exudates, nose normal. [] Eyes: PERRLA, EOMI, conjunctiva normal, no discharge. [] Neck: Normal range of motion, no tenderness, supple, no stridor. [] Cardiovascular:Heart rate regular rhythm, no murmur [] Lungs & Thorax: Bilateral breath sounds clear to auscultation [] Abdomen: Bowel sounds normal, soft, no tenderness, no masses, no pulsatile masses. [] Skin: Warm, dry, no erythema, no rash. [] Back: No tenderness, no CVA tenderness. [] Extremities: No tenderness, no cyanosis, no clubbing, ROM intact, no edema. [] Neurologic: Alert and oriented X 3, normal motor function, normal sensory function, no focal deficits noted. [] Psychologic: Affect normal, judgement normal, mood normal. [] Current Patient Data Vital Signs Vital Signs Date Time Temp Pulse Resp B/P (MAP) Pulse Ox O2 Delivery O2 Flow Rate FiO2 07/25/18 13:08 98.3 76 16 169/107 (127) 97 Room Air 98.3 EKG EKG Pertinent by me. EKG at 1331 showed normal sinus rhythm at rate of 78, left atrial abnormalities, leftward axis, poor R-wave progress in anteroseptal leads , no acute ST and T-wave abnormalities. Radiology/Procedures Radiology/Procedures [facility] [address] [facility] [place] [address] IMAGING REPORT Signed PATIENT: KECIA GROVER ACCOUNT: [id number] : 1980 LOCATION: ER AGE: 37 SEX: M EXAM STATUS: REG ER ORD. PHYSICIAN: RADHA DIETZ MD REASON: upper abdominal pain PROCEDURE: ABDOMEN LTD ABDOMEN LTD History: Right upper quadrant pain Comparison: None. Findings: Multiple sonographic images of the abdomen are submitted. Gallbladder is present without intraluminal abnormality, wall thickening, pericholecystic fluid. There is coarsening of the echotexture of the liver. Right lobe of the liver measured 19.1 cm longitudinal. Common bile duct is borderline 0.6 cm. Right kidney measured 12.9 x 5.1 x 6 cm, no hydronephrosis. There is segmental visualization of the inferior vena cava. No abnormality is demonstrated of the pancreas. Impression: 1. There is hepatic steatosis and mild hepatomegaly. Common bile duct is borderline in caliber, no abnormality demonstrated of the gallbladder. Electronically signed by: Antoientte Rodriguez MD (07/25/2018 2:05 PM) [id number] DICTATED and SIGNED BY: ANTOINETTE RODRIGUEZ MD DATE: 07/25/18 1402 Course & Med Decision Making Course & Med Decision Making Pertinent Labs and Imaging studies reviewed. (See chart for details) Evaluation of patient in ER showed 37-year-old male patient with complaining of abdominal pain for several days. Patient had unremarkable physical exam. EKG was unremarkable and patient felt better with GI cocktail. CT of abdomen and pelvis showed fatty liver without other finding. Patient also had elevation of blood pressure at 160s with history of hypertension and states he took his medication today. Patient instructed to loose weight and quit smoking and watch his diet and follow up with his primary care physician regarding" her blood pressure. Dragon Disclaimer Dragon Disclaimer This electronic medical record was generated, in whole or in part, using a voice recognition dictation system. Departure Departure Impression: Primary Impression: GERD (gastroesophageal reflux disease) Additional Impressions: Fatty liver Tobacco abuse Tobacco abuse counseling Elevated blood pressure reading Disposition: HOME, SELF-CARE (at 1437) Condition: IMPROVED Referrals: GIANLUCA ESCOBAR DO (PCP) Patient Instructions: Diet for Gastroesophageal Reflux Disease, Adult, Gastroesophageal Reflux Disease, Adult, Smoking Cessation, Tips For Success Additional Instructions: Drink plenty of liquids Follow-up with your primary care physician in 3-5 days Return to ER if not getting better Scripts Ranitidine Hcl (ZANTAC) 150 Mg Tablet 1 TAB PO BID for dyspepsia, #30 TAB 0 Refills Prov: RADHA DIETZ MD 07/25/18 Problem Qualifiers RADHA DIETZ MD Jul 25, 2018 13:29
[2018-07-25] MEDS ORDERED: LIDO:MAALOX 1:1 20 ML SINGLE DOSE. SWSW ONE (13:30)
--- NOTE | 2018-07-25 13:44 | EKG ---
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
--- NOTE | 2018-07-25 14:09 | RAD ---
ABDOMEN LTD History: Right upper quadrant pain Comparison: None. Findings: Multiple sonographic images of the abdomen are submitted. Gallbladder is present without intraluminal abnormality, wall thickening, pericholecystic fluid. There is coarsening of the echotexture of the liver. Right lobe of the liver measured 19.1 cm longitudinal. Common bile duct is borderline 0.6 cm. Right kidney measured 12.9 x 5.1 x 6 cm, no hydronephrosis. There is segmental visualization of the inferior vena cava. No abnormality is demonstrated of the pancreas. Impression: 1. There is hepatic steatosis and mild hepatomegaly. Common bile duct is borderline in caliber, no abnormality demonstrated of the gallbladder. Electronically signed by: Ralph Rodriguez MD (07/25/2018 2:05 PM) [id number]
[2018-07-25] MEDS ORDERED: RANI150T21 PO (14:40)
== END 2018-07-25 15:04 | disposition home or self-care (01) ==
LOC: ER 12:53
DX: K21.9 Gastro-esophageal reflux disease without esophagitis (principal); I10 Essential (primary) hypertension; K76.0 Fatty (change of) liver, not elsewhere classified; E78.00 Pure hypercholesterolemia, unspecified; F41.9 Anxiety disorder, unspecified; F17.210 Nicotine dependence, cigarettes, uncomplicated; Z71.6 Tobacco abuse counseling
CPT/HCPCS: 76705; 93005; 99284-25

== ENCOUNTER → 2019-03-16 | Outpatient (CLI) | payer BC ==
[2019-03-10 11:47] VITALS: BP 148/70
[~2019-03-16] MED LIST changes: -AMLO10TA6 PO; +AMLO10TA8 PO; +ASPI-612 PO; +HYDR12.58 PO; +LOSA100T14 PO; +RANI-376 PO
--- NOTE | 2019-03-16 13:52 | KCIC ---
EXAM: Right lower extremity venous Doppler sonogram. HISTORY: Pain and swelling. TECHNIQUE: Reyes scale and color Doppler sonographic evaluation of the right lower extremity veins with spectral waveform analysis was performed. FINDINGS: There is normal color flow, normal compressibility and there are normal spectral waveforms in the common femoral, superficial femoral, popliteal, posterior tibial and greater saphenous veins. There is soft tissue edema at the level of the ankle. IMPRESSION: No Doppler evidence of lower extremity deep venous thrombosis. Electronically signed by: Shellie Olea MD (03/16/2019 1:49 PM) [id number]
== END | disposition home or self-care (01) ==
LOC: KCIC US 13:02
PROVIDERS: ATTEND Family Medicine
DX: M79.661 Pain in right lower leg (principal); M79.89 Other specified soft tissue disorders
CPT/HCPCS: 93971

== ENCOUNTER 2019-04-20 10:09 | Emergency (ER) | payer BC ==
[2019-03-10 11:47] VITALS: BP 148/70
== END 2019-04-20 10:43 | disposition left against medical advice (07) ==
LOC: ER 10:09
DX: M79.89 Other specified soft tissue disorders (principal); Z53.21 Procedure and treatment not carried out due to patient leaving prior to being seen by health care provider

== ENCOUNTER 2021-02-20 09:03 | Emergency (ER) | payer BC ==
[~2021-02-20] VITALS: Ht 165.1 cm; Wt 119.9 kg
[~2021-02-20 09:03] MED LIST changes: +AMLO-187 PO; -AMLO10TA8 PO; -ASPI-612 PO; +ASPI-886 PO; +MECL-75 PO; -MECL25TA3 PO; +SIMV40TA18 PO; -SIMV40TA3 PO
[2021-02-20 11:08] VITALS: BP 141/84
--- NOTE | 2021-02-20 12:01 | PHYS DOC ---
Past Medical History Past Medical History: Anxiety, High Cholesterol, Hypertension, ND, Other Additional Past Medical Histor: sleep apnea Past Surgical History: No Surgical History Smoking Status: Current Every Day Smoker Alcohol Use: Occasionally Drug Use: Cocaine General Adult EDM: Chief Complaint: FLU SYMPTOM HPI: HPI: 40-year-old -[place] male past medical history of hypertension, hyperlipidemia and arthritis, presents to the ED with complaints of dry cough, fatigue, anorexia, loss of taste/smell and sore throat stating that his son and [id number] who he lives with recently tested positive for Covid. Patient reports he received 1 injection of his Covid vaccine but never followed up for the second dose due to scheduling problems. Review of Systems: Review of Systems: Constitutional: Denies fever or chills. [] Eyes: Denies change in visual acuity. [] HENT: Denies nasal congestion or sore throat. [] Respiratory: Denies hemoptysis or shortness of breath. [] Cardiovascular: Denies chest pain or edema. [] GI: Denies abdominal pain, nausea, vomiting, bloody stools or diarrhea. [] : Denies dysuria or hematuria Musculoskeletal: Denies back pain or joint pain. [] Integument: Denies rash or diaphoresis Neurologic: Denies headache, focal weakness or sensory changes. [] Endocrine: Denies polyuria or polydipsia. [] Lymphatic: Denies swollen glands. [] Psychiatric: Denies depression or anxiety. [] Heart Score: C/O Chest Pain: No Risk Factors: Risk Factors: DM, Current or recent (<one month) smoker, HTN, HLP, family history of CAD, obesity. Risk Scores: Score 0 - 3: 2.5% MACE over next 6 weeks - Discharge Home Score 4 - 6: 20.3% MACE over next 6 weeks - Admit for Clinical Observation Score 7 - 10: 72.7% MACE over next 6 weeks - Early Invasive Strategies Allergies: Allergies: Allergies Coded Allergies Type Severity Reaction Last Updated Verified No Known Drug Allergies 04/27/18 No Physical Exam: PE: Constitutional: Well developed, well nourished, no acute distress, non-toxic appearance. HENT: Normocephalic, atraumatic, Eyes: EOMI, conjunctiva normal, no discharge. Neck: Normal range of motion, supple, Cardiovascular: S1/2 present, regular rhythm Lungs & Thorax: Speaking in full sentences, bilateral equal chest rise, no tachypnea or increased work of breathing Abdomen: soft, no tenderness, Skin: Warm, dry, no erythema, no rash. [] Back: No tenderness, no CVA tenderness. [] Extremities: No tenderness, no cyanosis, no lower extremity edema Neurologic: Alert and oriented X 3, normal motor function, normal sensory function, no focal deficits noted. [] Psychologic: Affect normal, judgement normal, mood normal. [] Current Patient Data: Labs: Laboratory Tests Test 02/20/21 10:13 SARS-CoV-2 Antigen (Rapid) Negative (NEGATIVE) Vital Signs: Vital Signs Date Time Temp Pulse Resp B/P (MAP) Pulse Ox O2 Delivery O2 Flow Rate FiO2 02/20/21 10:38 92 18 104/58 (73) 98 Room Air 02/20/21 09:35 98.1 98.1 EKG: EKG: [] Radiology/Procedures: Radiology/Procedures: [] Impression: PERC rule for pulmonary embolus 0 criteria No need for further workup, as <2% chance of PE. If no criteria are positive and clinicians pre-test probability is <15%, PERC Rule criteria are satisfied. Course & Med Decision Making: Course & Med Decision Making Pertinent Labs and Imaging studies reviewed. (See chart for details) COVID-19 CRITERIA: The patient was evaluated during the global COVID-19 pandemic, and that diagnosis was suspected/considered upon their initial presentation. Their evaluation, treatment and testing was consistent with current guidelines for patients who present with complaints or symptoms that may be related to COVID-19. Concern for PUI the setting of recent exposure to Covid, did not complete his vaccination series. Hemodynamically stable, requiring no supplemental oxygen, is speaking in full sentences. Rapid Covid test negative. PCR pending. Will discharge home with strict ED return precautions were given for stroke symptoms, neurologic deficits, chest pain, dyspnea, or hemoptysis. Encouraged urgent outpatient follow-up with PMD. Life-threatening processes were considered but are low suspicion at this time, given history, physical exam and ED workup. Pt was educated on all prescription medications and adverse effects. All patient's questions were answered and pt was stable at time of discharge. Life/limb-threatening differential includes but is not limited to, airway emergency or respiratory distress/ARDS or fatigue or head or neck swelling, toxidrome, sepsis/shock, angioedema, anaphylaxis, congestive heart failure, myocarditis, acute myocardial infarction, dysrhythmias, cardiomyopathy, venous thromboembolism, pulmonary emboli, acute necrotizing hemorrhagic encephalopathy ,cerebral venous thrombosis, meningitis, encephalitis or CVA. I have spoken with the patient and/or caregivers. I explained the patient's condition, diagnoses and treatment plan based on the information available to me at this time. I have answered the patient and/or caregiver's questions and addressed any concerns. The patient and/or caregivers have a good understanding of patient's diagnosis, condition and treatment plan as can be expected at this point. Vital signs have been stable. Patient's condition is stable and appropriate for discharge from the emergency department. Patient will pursue further outpatient evaluation with primary care physician or other designated or consulting physician as outlined in the discharge instructions. The patient and/or caregivers are agreeable to this plan of care and follow-up instructions have been explained in detail. The patient and/or caregivers have received these instructions in written form and have expressed an understanding of the discharge instructions. The patient and/or caregivers are aware that any significant change of condition or worsening of symptoms should prompt immediate return to this or the closest emergency department or call to 911. Magdalene Disclaimer: Magdalene Disclaimer: This electronic medical record was generated, in whole or in part, using a voice recognition dictation system. Departure Departure Impression: Primary Impression: Person under investigation for COVID-19 Disposition: HOME / SELF CARE / HOMELESS Condition: STABLE Referrals: GIANLUCA ESCOBAR DO (PCP) Follow-up with your primary care physician in 24 to 48 hours OR FOLLOW UP WITH FAMILY MEDICINE: [address] [place] [address] Patient Instructions: Upper Respiratory Infection, Adult Additional Instructions: Return to ED immediately if your oxygen level drops below 90% (purchase a pulse oximetry at a medical supply store), difficulties breathing including rapid breathing or increased work of breathing (skin sucking under ribs), chest pain or stroke-like symptoms (facial droop, speech changes, arm/leg weakness). You have been tested for or diagnosed with COVID-19. It is an infection caused by a new type of coronavirus. COVID-19 will cause cold-like or mild flu symptoms in most. It can cause more severe symptoms like problems breathing in some. There is no treatment for COVID-19. The body will clear the infection over time. Self-care will help to ease discomfort. Steps to Take: Self-Care Rest as needed. Healthy habits may help you feel better. Steps include: Choose healthy foods including fruits and vegetables. Drink water throughout the day. Get plenty of sleep each night. If you smoke, try to quit. It may ease breathing. Avoid alcohol. Keep Others Healthy The virus can spread to others. Droplets are released every time you sneeze or cough. The droplets can get into the mouth, nose, or eyes of people near you and lead to infection. To lower the chances of spreading COVID-19 to others: Stay at home until your doctor has said it is safe to leave. If you tested positive this will mean staying isolated until both of the following are true: At least 7 days have passed since the start of illness. You are free of fever for at least 72 hours without the use of medicine. During this time: - Avoid public areas, events, or transportation. Do not return to work or school until your doctor has said it is safe to do so. - Call ahead if you need to go to a medical center. Let them know you may have COVID-19. It will help them guide you where to go. They may also ask you to wear a facemask when you come to the office. - If you call for emergency medical services, let them know you may have COVID- 19. While at home: - Try to avoid close contact with others. Stay about 6 feet away. - If possible, spend most of your time in a separate room from others. - Use a face mask if you will be in close contact with others such as sharing a room or vehicle. - Have someone wipe down common surfaces in the home. Use household hotel or motel receptionist every day on areas like doorknobs, counters, or sinks. - Cough or sneeze into a tissue. Throw the tissue away right after use. If a tissue is not available, cough or sneeze into your elbow. - Wash your hands often. Wash them after sneezing or coughing. Use soap and water and wash for at least 20 seconds. Alcohol based hand mandrel cleaner can be used if soap and water is not available. - Do not prepare food for others. Avoid sharing personal items like forks, spoons, or toothbrushes. - Avoid close contact with pets while you are sick. There is no evidence of the virus passing to pets. This is a safety step until more is known about this virus. Isolation can be frustrating. Social interaction can help. Keep in touch with friends and family through phone and tech options. You can still interact with others in your home, just keep a safe distance of about 6 feet. Follow-up: Your doctors office will check in with you to see if there are any changes in your health. You may be asked to keep track of symptoms to share with them. They will also let you know when you are clear to be in public again. Problems to Look Out For: Contact your doctor if your recovery is not going as you expect. Get emergency care if you have problems such as: - Trouble breathing - Nonstop chest pain or pressure - Changes in awareness, confusion, or problems waking - Lips or face have bluish color - Worsening of symptoms If you think you have an emergency, call for emergency medical services right away. [facility] Feb 20, 2021 12:01
--- NOTE | 2021-02-21 12:52 | NUR ---
IP: Informed pt of negative covid test. Pt verbalized understanding.
== END 2021-02-20 12:22 | disposition home or self-care (01) ==
LOC: ER 09:03
DX: R05 Cough (principal); R53.83 Other fatigue; R43.8 Other disturbances of smell and taste; F41.9 Anxiety disorder, unspecified; E78.00 Pure hypercholesterolemia, unspecified; I10 Essential (primary) hypertension; I25.2 Old myocardial infarction; F17.200 Nicotine dependence, unspecified, uncomplicated; E78.5 Hyperlipidemia, unspecified; Z20.822 Contact with and (suspected) exposure to COVID-19
CPT/HCPCS: 87426; 99283; U0003; U0005